=== PATIENT | male | born 1930 | race African-American/Black ===

== ENCOUNTER 2019-03-21 09:13 | Emergency (ER) | payer OTHER ==
[2019-03-21] MEDS ORDERED: HYDROCODONE/APAP 7.5/325 MG TAB ONE (10:35)
--- NOTE | 2019-03-21 10:45 | RAD REPORT ---
EXAM DESCRIPTION: RAD - Lumbar Spine 3 Views - 03/21/2019 10:35 am CLINICAL HISTORY: Back pain FINDINGS: Mild anterior subluxation L4 on L5. No acute fracture seen. Mild to moderate spondylosis Osteoporosis
--- NOTE | 2019-03-21 10:47 | RAD REPORT ---
EXAM DESCRIPTION: [place]03/21/2019 10:35 am CLINICAL HISTORY: Back pain status post fall FINDINGS: No fracture is seen Osteoporosis
--- NOTE | 2019-03-21 11:01 | ER ---
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 Transition of care: patient was not received from another setting of care. Onset of symptoms was March 20, 2019. Risk Assessment: Do you want to hurt yourself or someone else? Patient reports no desire to harm self or others. Initial Sepsis Screen: Does the patient meet any 2 criteria? No. Patient's initial sepsis screen is negative. Does the patient have a suspected source of infection? No. Patient's initial sepsis screen is negative. Care prior to arrival: None. 09:33 Method Of Arrival: Wheelchair iw 09:33 Acuity: ANGUS 4 iw Historical: - Allergies: 09:38 No Known Allergies; iw - Home Meds: 09:36 valsartan-hydrochlorothiazide 320-25 mg oral tab 1 tab once daily [Active]; metformin iw 500 mg Oral tr24 1 tab twice a day [Active]; amiloride 5 mg oral tab 1 tab once daily [Active]; bumetanide 2 mg Oral tab 1 tab 2 times per day [Active]; colchicine 0.6 mg Oral tab 1 tab once daily [Active]; - PMHx: 09:36 Diabetes - NIDDM; Glaucoma; Hypertension; irregular heartbeat; Kyphosis; prostate iw radiation; - PSHx: 09:36 cataracts; iw - Immunization history:: Adult Immunizations not up to date. - Social history:: Smoking status: Patient/guardian denies using tobacco. - Ebola Screening: : Patient negative for fever greater than or equal to 101.5 degrees Fahrenheit, and additional compatible Ebola Virus Disease symptoms Patient denies exposure to infectious person Patient denies travel to an Ebola-affected area in the 21 days before illness onset No symptoms or risks identified at this time. Screenin:00 Abuse screen: Denies threats or abuse. Denies injuries from another. Nutritional hb screening: No deficits noted. Tuberculosis screening: No symptoms or risk factors identified. Fall Risk Total [place] Fall Scale indicates Low Risk Score (25-44 pts). Fall prevention measures have been instituted. Side Rails Up X 2 Frequent Obs/Assesments occuring Family Present and informed to notify staff if they need to leave bedside As available Patient and Family Educated on Fall Prevention Program and strategies. Vital Signs: 09:36 BP 131 / 68; Pulse 50; Resp 16; Temp 98.2; Pulse Ox 97% on R/A; Weight 95.71 kg; Height iw 6 ft. 1 in. (185.42 cm); Pain 5/10; 09:36 Body Mass Index 27.84 (95.71 kg, 185.42 cm) iw ED Course: 09:14 Patient arrived in ED. as 09:14 Neeru Santos is Private Physician. as 09:35 Triage completed. iw 09:36 Arm band placed on. iw 09:51 Marvel Best PA is PHCP. jr8 09:52 Jose Maria Suarez MD is Attending Physician. jr8 10:00 Patient has correct armband on for positive identification. Bed in low position. Call hb light in reach. Side rails up X 1. 10:07 Vianney Garnett, RN is Primary Nurse. hb 10:33 XRAY Lumbar Spine (3 Views) In Process Unspecified. EDMS 10:33 XRAY Sacrum And Coccyx In Process Unspecified. EDMS 11:35 No provider procedures requiring assistance completed. Patient did not have IV access hb during this emergency room visit. Administered Medications: 10:49 Drug: [place] (7.5 mg-325 mg) 1 tabs Route: PO; hb 11:34 Follow up: Response: No adverse reaction; Pain is decreased hb Outcome: 11:00 Discharge ordered by . jr8 11:35 Patient left the ED. iw 11:35 Discharged to home ambulatory. hb 11:35 Condition: stable 11:35 Discharge instructions given to patient, Instructed on discharge instructions, follow up and referral plans. medication usage, Demonstrated understanding of instructions, follow-up care, medications, Prescriptions given X 2. Signatures: Dispatcher [employer] EDMS BoTaylor Irene, RN RN iw Marvel Best PA PA jr8 Vianney Garnett, RN RN hb
--- NOTE | 2019-03-21 11:01 | EDPHYS ---
Physician Documentation [facility] Name: Marin Bhardwaj Age: 89 yrs Sex: Male : 1930 Arrival Date: 03/21/2019 Time: 09:14 Bed 6 Private MD: Neeru Santos ED Physician Jose Maria Suarez HPI: 03/21 10:51 This 89 yrs old Black Male presents to ER via Wheelchair with complaints of Back Pain. jr8 10:51 The patient presents with pain that is acute. The symptoms are located in the low back, jr8 coccyx area. Onset: The symptoms/episode began/occurred acutely, 3 day(s) ago. The pain does not radiate. Associated signs and symptoms: The patient has no apparent associated signs or symptoms. The problem was sustained during a fall. Modifying factors: The patient symptoms are alleviated by nothing, the patient symptoms are aggravated by movement. Severity of symptoms: At their worst the symptoms were moderate, in the emergency department the symptoms are unchanged. The patient has not experienced similar symptoms in the past. The patient has not recently seen a physician. Stated that he fell off of his riding mower on . Landed on concrete hitting his low back and buttock region. Pain since then. Denies any other s/s . Historical: - Allergies: 09:38 No Known Allergies; iw - Home Meds: 09:36 valsartan-hydrochlorothiazide 320-25 mg oral tab 1 tab once daily [Active]; metformin iw 500 mg Oral tr24 1 tab twice a day [Active]; amiloride 5 mg oral tab 1 tab once daily [Active]; bumetanide 2 mg Oral tab 1 tab 2 times per day [Active]; colchicine 0.6 mg Oral tab 1 tab once daily [Active]; - PMHx: 09:36 Diabetes - NIDDM; Glaucoma; Hypertension; irregular heartbeat; Kyphosis; prostate iw radiation; - PSHx: 09:36 cataracts; iw - Immunization history:: Adult Immunizations not up to date. - Social history:: Smoking status: Patient/guardian denies using tobacco. - Ebola Screening: : Patient negative for fever greater than or equal to 101.5 degrees Fahrenheit, and additional compatible Ebola Virus Disease symptoms Patient denies exposure to infectious person Patient denies travel to an Ebola-affected area in the 21 days before illness onset No symptoms or risks identified at this time. ROS: 10:51 Eyes: Negative for injury, pain, redness, and discharge, ENT: Negative for injury, jr8 pain, and discharge, Neck: Negative for injury, pain, and swelling, Cardiovascular: Negative for chest pain, palpitations, and edema, Respiratory: Negative for shortness of breath, cough, wheezing, and pleuritic chest pain, Abdomen/GI: Negative for abdominal pain, nausea, vomiting, diarrhea, and constipation, MS/Extremity: Negative for injury and deformity, Skin: Negative for injury, rash, and discoloration, Neuro: Negative for headache, weakness, numbness, tingling, and seizure. 10:51 Back: Positive for pain at rest, pain with movement, of the low back area and sacrum. Exam: 10:51 Eyes: Pupils equal round and reactive to light, extra-ocular motions intact. Lids and jr8 lashes normal. Conjunctiva and sclera are non-icteric and not injected. Cornea within normal limits. Periorbital areas with no swelling, redness, or edema. ENT: Nares patent. No nasal discharge, no septal abnormalities noted. Tympanic membranes are normal and external auditory canals are clear. Oropharynx with no redness, swelling, or masses, exudates, or evidence of obstruction, uvula midline. Mucous membranes moist. Neck: Trachea midline, no thyromegaly or masses palpated, and no cervical lymphadenopathy. Supple, full range of motion without nuchal rigidity, or vertebral point tenderness. No Meningismus. Cardiovascular: Regular rate and rhythm with a normal S1 and S2. No gallops, murmurs, or rubs. Normal PMI, no JVD. No pulse deficits. Respiratory: Lungs have equal breath sounds bilaterally, clear to auscultation and percussion. No rales, rhonchi or wheezes noted. No increased work of breathing, no retractions or nasal flaring. Abdomen/GI: Soft, non-tender, with normal bowel sounds. No distension or tympany. No guarding or rebound. No evidence of tenderness throughout. Skin: Warm, dry with normal turgor. Normal color with no rashes, no lesions, and no evidence of cellulitis. MS/ Extremity: Pulses equal, no cyanosis. Neurovascular intact. Full, normal range of motion. Neuro: Awake and alert, GCS 15, oriented to person, place, time, and situation. Cranial nerves II-XII grossly intact. Motor strength 5/5 in all extremities. Sensory grossly intact. Cerebellar exam normal. Normal gait. 10:51 Back: pain, that is mild, of the lumbar area and sacrum, ROM is painful, normal spinal alignment noted, CVA tenderness, is absent, vertebral tenderness, is appreciated at L3, L4, L5 and sacrum. Vital Signs: 09:36 BP 131 / 68; Pulse 50; Resp 16; Temp 98.2; Pulse Ox 97% on R/A; Weight 95.71 kg; Height iw 6 ft. 1 in. (185.42 cm); Pain 510; 09:36 Body Mass Index 27.84 (95.71 kg, 185.42 cm) iw MDM: 09:52 Patient medically screened. jr8 11:00 Data reviewed: vital signs, nurses notes, radiologic studies, plain films. Data jr8 interpreted: Pulse oximetry: on room air is 97 %. Interpretation: normal. Counseling: I had a detailed discussion with the patient and/or guardian regarding: the historical points, exam findings, and any diagnostic results supporting the discharge/admit diagnosis, radiology results, the need for outpatient follow up, a family practitioner, to return to the emergency department if symptoms worsen or persist or if there are any questions or concerns that arise at home. 03/21 10:08 Order name: XRAY Lumbar Spine (3 Views); Complete Time: 10:50 jr8 03/21 10:08 Order name: XRAY Sacrum And Coccyx; Complete Time: 10:50 jr8 Administered Medications: 10:49 Drug: [place] (7.5 mg-325 mg) 1 tabs Route: PO; hb 11:34 Follow up: Response: No adverse reaction; Pain is decreased hb Disposition: 13:42 Co-signature as Attending Physician, Jose Maria Suarez MD. Disposition: 03/21/19 11:00 Discharged to Home. Impression: Low back pain. - Condition is Stable. - Discharge Instructions: Back Pain, Adult, Heat Therapy. - Prescriptions for Skelaxin 800 mg Oral Tablet - take 1 tablet by ORAL route every 8 hours As needed; 20 tablet. Tramadol 50 mg Oral Tablet - take 1 tablet by ORAL route every 8 hours as needed; 12 tablet. - Medication Reconciliation Form, Thank You Letter, Antibiotic Education, Prescription Opioid Use form. - Follow up: Private Physician; When: As needed; Reason: If symptoms return, Recheck today's complaints, Continuance of care, Re-evaluation by your physician. - Problem is new. - Symptoms have improved. Signatures: Dispatcher [employer] EDLeila Childs RN RN iw Marvel Best PA PA jr8 Vianney Garnett RN RN Jose Maria Suarez MD MD Corrections: (The following items were deleted from the chart) 11:35 11:00 03/21/2019 11:00 Discharged to Home. Impression: Low back pain. Condition is iw Stable. Forms are Medication Reconciliation Form, Thank You Letter, Antibiotic Education, Prescription Opioid Use. Follow up: Private Physician; When: As needed; Reason: If symptoms return, Recheck today's complaints, Continuance of care, Re-evaluation by your physician. Problem is new. Symptoms have improved. jr8
== END 2019-03-21 11:35 | disposition home or self-care (01) ==
LOC: ER 09:13
DX: M54.5 Low back pain (principal); I10 Essential (primary) hypertension; E11.9 Type 2 diabetes mellitus without complications
CPT/HCPCS: 72100; 72220; 99283

== ENCOUNTER 2020-04-01 15:15 | Observation (INO) | payer OTHER ==
[2020-04-01 16:13] LABS: Absolute Lymphocytes (CBC) 1.2 K/uL (0.7-4.9); Basophils % 0.3 % (0-1.3); Hematocrit 38.4 % (39.6-49.0); Lymphocytes % 12.4 % (15.3-44.8); MPV 7.2 fL (7.6-11.3); RBC Red Blood Cell Count 4.13 M/uL (4.33-5.43)
[2020-04-01 16:15] LABS: Protime INR 1.16
[2020-04-01 16:32] LABS: Albumin 2.4 g/dL (3.4-5.0); Bilirubin Direct 0.3 mg/dL (0-0.2); Bilirubin Total 0.6 mg/dL (0.2-1.0); Magnesium 2.7 mg/dL (1.8-2.4); Potassium 3.6 mmol/L (3.5-5.1); Protein, Total 7.9 g/dL (6.4-8.2); Troponin (Emerg Dept Use Only) 0.16 ng/mL (0.0-0.045)
--- NOTE | 2020-04-01 16:56 | RAD REPORT ---
EXAM DESCRIPTION: RAD - Chest Single View - 04/01/2020 4:05 pm CLINICAL HISTORY: bilateral leg swelling Chest pain. COMPARISON: Chest Single View dated 10/09/2017 FINDINGS: Portable technique limits examination quality. 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 Calcified areas of nodularity are seen in the left up per lobe laterally, likely benign. The heart is upper limit normal in size. No displaced fractures. IMPRESSION: No acute intrathoracic process suspected.
--- NOTE | 2020-04-01 16:57 | RAD REPORT ---
EXAM DESCRIPTION: US - Extrem Venous W Compress Kam - 04/01/2020 4:33 pm CLINICAL HISTORY: Swelling;Pain Bilateral leg edema and swelling. COMPARISON: EXT VENOUS UNI LTD dated 07/15/2014 TECHNIQUE: Real-time sonographic interrogation of the left and right lower extremity deep venous sys tems was performed. FINDINGS: Thrombus is present in the left common femoral vein compatible with acute DVT. That will r ight lower extremity DVT. 6 cm Valdivia's cyst left popliteal region. IMPRESSION: Positive for left common femoral vein DVT.
--- NOTE | 2020-04-01 17:06 | EDPHYS ---
Physician Documentation [facility] Name: Marin Bhardwaj Age: 89 yrs Sex: Male : 1930 Arrival Date: 04/01/2020 Time: 15:24 Bed 8 Private MD: ED Physician Kennedy Tan HPI: 04/01 15:35 This 89 yrs old Black Male presents to ER via EMS with complaints of Leg Swelling. cp 15:35 The patient presents with pain, swelling, tenderness. The complaints affect the right cp foot, left foot, right leg and left leg. 15:35 Onset: The symptoms/episode began/occurred gradually. cp 15:35 Associated signs and symptoms: Pertinent negatives fever, warmth, chest pain, abdominal cp pain, shortness of breath. Historical: - Allergies: 15:28 No Known Allergies; em - PMHx: 15:28 Diabetes - NIDDM; Glaucoma; irregular heartbeat; Kyphosis; prostate radiation; em Hypertension; Atrial Fib; - PSHx: 15:28 cataracts; em - Immunization history:: Adult Immunizations up to date. - Social history:: Smoking status: Patient denies any tobacco usage or history of. ROS: 15:39 Eyes: Negative for injury, pain, redness, and discharge. cp 15:39 Constitutional: Negative for body aches, chills, fever, poor PO intake. 15:39 ENT: Negative for ear pain, sore throat, difficulty swallowing, difficulty handling cp secretions. 15:39 Cardiovascular: Positive for edema, Negative for chest pain, palpitations. 15:39 Respiratory: Negative for cough, shortness of breath, wheezing. 15:39 Abdomen/GI: Negative for abdominal pain, nausea, vomiting, and diarrhea. 15:39 Back: Negative for pain at rest, pain with movement. 15:39 Skin: Negative for rash. 15:39 Neuro: Negative for altered mental status, dizziness, headache, syncope, weakness. 15:39 All other systems are negative. Exam: 15:45 Constitutional: The patient appears in no acute distress, alert, awake, cp non-diaphoretic, non-toxic, well developed, well nourished. 15:45 Head/Face: Normocephalic, atraumatic. cp 15:45 Eyes: Periorbital structures: appear normal, Conjunctiva: normal, no exudate, no injection, Sclera: no appreciated abnormality, Lids and lashes: appear normal, bilaterally. 15:45 ENT: External ear(s): are unremarkable, Nose: is normal, Mouth: Lips: moist, Oral mucosa: moist, Posterior pharynx: is normal, airway is patent. 15:45 Chest/axilla: Inspection: normal, Palpation: is normal, no crepitus, no tenderness. 15:45 Cardiovascular: Rate: normal, Rhythm: regular, Edema: pedal edema, that is moderate, ankle edema, that is moderate, JVD: is not appreciated. 15:45 Respiratory: the patient does not display signs of respiratory distress, Respirations: normal, no use of accessory muscles, no retractions, labored breathing, is not present, Breath sounds: decreased breath sounds, that are mild, throughout. 15:45 Abdomen/GI: Inspection: abdomen appears normal, Palpation: abdomen is soft and non-tender, in all quadrants. 15:45 Musculoskeletal/extremity: Pulses: noted to be 2+ in the right dorsalis pedis artery and left dorsalis pedis artery, DVT Exam: no erythema, no increased warmth, pain, that is mild, of the right leg, of the left leg, swelling, of the right leg, of the left leg, worse left leg, tenderness, that is mild, of the right leg, of the left leg. 15:45 Skin: cellulitis, is not appreciated, no rash present. 15:45 Neuro: Orientation: to person, place \T\ time. Mentation: is normal. 16:15 ECG was reviewed by the Attending Physician. cp Vital Signs: 15:24 BP 96 / 80; Pulse 81; Resp 18; Temp 98.1(O); Pulse Ox 100% on R/A; Weight 109.77 kg; em Height 6 ft. 2 in. (187.96 cm); Pain 0/10; 16:33 BP 105 / 65; Pulse 81; Resp 16; Pulse Ox 99% on R/A; em 17:38 BP 110 / 61; Pulse 62; Resp 21; Pulse Ox 100% ; jl7 19:21 BP 109 / 65; Pulse 66; Resp 18; Temp 98; Pulse Ox 98% ; ea 15:24 Body Mass Index 31.07 (109.77 kg, 187.96 cm) em MDM: 15:33 Patient medically screened. cp 16:00 Differential diagnosis: cellulitis, CHF exacerbation, DVT. cp 17:01 Data reviewed: vital signs, nurses notes, lab test result(s), EKG, radiologic studies, cp plain films, I have discussed the patient's presentation/case with the attending Emergency Department Physician;. Test interpretation: by ED physician or midlevel provider: ECG. Physician consultation: Prince Anushka PETE was called at 17:00, was contacted at 17:00, regarding admission, to the telemetry unit. patient's condition. 04/01 15:36 Order name: Basic Metabolic Panel; Complete Time: 16:33 04/01 16:33 Interpretation: Normal except: NA 132; CL 96; GLUC 155; BUN 99; CRE 2.30; GFR 33. 04/01 15:36 Order name: CBC with Diff; Complete Time: 16:28 04/01 16:29 Interpretation: Normal except: RBC 4.13; HGB 12.9; HCT 38.4; MPV 7.2; EVELIA% 77.2; LYM% cp 12.4. 04/01 15:36 Order name: LFT's; Complete Time: 16:33 04/01 16:35 Interpretation: Normal except: AST 60; ALT 81; BILID 0.3; ALB 2.4; GLOB 5.5; A/G 0.4. 04/01 15:36 Order name: Magnesium; Complete Time: 16:33 04/01 15:36 Order name: NT PRO-BNP; Complete Time: 16:33 04/01 17:01 Interpretation: Abnormal: NT PRO-BNP 4403. 04/01 15:36 Order name: PT-INR; Complete Time: 16:28 04/01 15:36 Order name: Troponin (emerg Dept Use Only); Complete Time: 16:33 04/01 16:35 Interpretation: Reviewed. 04/01 17:47 Order name: CBC with Automated Diff EDIN 04/01 17:47 Order name: CBC with Automated Diff EDIN 04/01 17:47 Order name: Comprehensive Metabolic Panel EDIN 04/01 17:47 Order name: Comprehensive Metabolic Panel EDIN 04/01 17:47 Order name: Troponin I EDIN 04/01 17:47 Order name: Troponin I EDIN 04/01 17:47 Order name: Troponin I EDIN 04/01 15:36 Order name: US Extremity Venous W Compression Kam; Complete Time: 16:58 cp 04/01 15:36 Order name: XRAY Chest (1 view); Complete Time: 16:58 cp 04/01 15:36 Order name: EKG; Complete Time: 15:37 04/01 15:36 Order name: Cardiac monitoring; Complete Time: 16:15 04/01 15:36 Order name: EKG - Nurse/Tech; Complete Time: 16:15 cp 04/01 15:36 Order name: IV Saline Lock; Complete Time: 15:53 cp 04/01 15:36 Order name: Labs collected and sent; Complete Time: 15:53 04/01 15:36 Order name: O2 Per Protocol; Complete Time: 15:56 04/01 15:36 Order name: O2 Sat Monitoring; Complete Time: 15:56 cp 04/01 17:47 Order name: CONS Pharmacy Consult EDIN 04/01 17:47 Order name: CONS Physician Consult EDIN 04/01 17:47 Order name: CONS Physician Consult EDIN 04/01 17:47 Order name: Consistent Carb (ADA) 1800 Raul EDMS EC:15 Rate is 65 beats/min. QRS interval is prolonged at 102 msec. QT interval is normal. T cp waves are Inverted in lead aVR. Interpreted by me. Reviewed by me. Administered Medications: 17:38 Drug: Lovenox 1 mg/kg {Note: was given 110 mg.} Route: Sub-Q; Site: left lower abdomen; em 18:30 Follow up: Response: No adverse reaction em 17:40 Drug: Bumex 1 mg Route: IVP; Site: left hand; em 18:30 Follow up: Response: No adverse reaction em 19:17 Drug: fentaNYL (PF) 25 mcg Route: IVP; Site: left forearm; ea 19:40 Follow up: Response: No adverse reaction; Pain is decreased; RASS: Alert and Calm (0) ea Disposition: 04/02 07:04 Co-signature as Attending Physician, Kennedy Tan MD. rn Disposition: 04/01/20 17:05 Hospitalization ordered by Prince Anushka for Inpatient Admission. Preliminary diagnosis are Acute embolism and thrombosis of deep veins of lower extremity - left, Unspecified combined systolic (congestive) and diastolic (congestive) heart failure, Acute kidney failure, unspecified. - Bed requested for Telemetry/MedSurg (Inpatient). - Status is Inpatient Admission. ea - Condition is Stable. - Problem is new. - Symptoms have improved. Signatures: Dispatcher [employer] Mike Villarreal RN RN Kennedy Fournier MD MD rn Page, Corey, PA PA Tami Strickland RN RN ea Botello, Elizabeth Corrections: (The following items were deleted from the chart) 04/01 17:59 17:05 Hospitalization Ordered by Prince Anushka PETE for Inpatient Admission. Preliminary eb diagnosis is Acute embolism and thrombosis of deep veins of lower extremity - left; Unspecified combined systolic (congestive) and diastolic (congestive) heart failure; Acute kidney failure, unspecified. Bed requested for Telemetry/MedSurg (Inpatient). Status is Inpatient Admission. Condition is Stable. Problem is new. Symptoms have improved. cp 20:16 17:59 04/01/2020 17:05 Hospitalization Ordered by Prince Anushka PETE for Inpatient ea Admission. Preliminary diagnosis is Acute embolism and thrombosis of deep veins of lower extremity - left; Unspecified combined systolic (congestive) and diastolic (congestive) heart failure; Acute kidney failure, unspecified. Bed requested for Telemetry/MedSurg (Inpatient). Status is Inpatient Admission. Condition is Stable. Problem is new. Symptoms have improved. eb 04/02 19:41 15:39 Cardiovascular: Positive for edema, Negative for chest pain, palpitations, cp cp 19:41 15:39 Respiratory: Negative for cough, shortness of breath, wheezing, cp cp 19:41 15:39 Abdomen/GI: Negative for abdominal pain, nausea, vomiting, and diarrhea, cp cp 19:41 15:39 ENT: Negative for ear pain, sore throat, difficulty swallowing, difficulty cp handling secretions, cp 19:41 15:39 Back: Negative for pain at rest, pain with movement, cp cp 19:41 15:39 Neuro: Negative for altered mental status, dizziness, headache, syncope, cp weakness, cp 19:41 15:39 Skin: Negative for rash, cp cp 19:41 15:39 All other systems are negative, cp cp
--- NOTE | 2020-04-01 17:06 | ER ---
Nurse's Notes [facility] Name: Marin Bhardwaj Age: 89 yrs Sex: Male : 1930 Arrival Date: 04/01/2020 Time: 15:24 Bed 8 Private MD: Diagnosis: Acute embolism and thrombosis of deep veins of lower extremity-left;Unspecified combined systolic (congestive) and diastolic (congestive) heart failure;Acute kidney failure, unspecified Presentation: 04/01 15:24 Chief complaint: EMS states: family called EMS for chai. leg swelling, right hand em swelling and right knee pain, no fever, cough or shortness of breath. Coronavirus screen: Proceed with normal triage. Patient denies a cough. Patient denies shortness of breath or difficulty breathing. Patient denies measured and/or subjective temperature greater than 100.4F prior to today's visit. Patient denies travel on a cruise ship or to a country the [facility] currently lists as an affected area. Patient denies contact with known and/or suspected case of COVID-19. Ebola Screen: Patient negative for fever greater than or equal to 101.5 degrees Fahrenheit, and additional compatible Ebola Virus Disease symptoms Patient denies exposure to infectious person. Patient denies travel to an Ebola-affected area in the 21 days before illness onset. No symptoms or risks identified at this time. Initial Sepsis Screen: Does the patient meet any 2 criteria? No. Patient's initial sepsis screen is negative. Does the patient have a suspected source of infection? No. Patient's initial sepsis screen is negative. Risk Assessment: Do you want to hurt yourself or someone else? Patient reports no desire to harm self or others. Onset of symptoms was April 01, 2020. 15:24 Method Of Arrival: EMS: [facility] em 15:24 Acuity: ANGUS 3 em Historical: - Allergies: 15:28 No Known Allergies; em - PMHx: 15:28 Diabetes - NIDDM; Glaucoma; irregular heartbeat; Kyphosis; prostate radiation; em Hypertension; Atrial Fib; - PSHx: 15:28 cataracts; em - Immunization history:: Adult Immunizations up to date. - Social history:: Smoking status: Patient denies any tobacco usage or history of. Screenin:28 Abuse screen: Denies threats or abuse. Nutritional screening: No deficits noted. em Tuberculosis screening: No symptoms or risk factors identified. Fall Risk Gait- Weak (10 pts.). Mental Status- Oriented to own ability (0 pts). Total [place] Fall Scale indicates No Risk (0-24 pts). Assessment: 15:24 General: Appears in no apparent distress. comfortable, Behavior is calm, cooperative, em Denies fever. Pain: Pain currently is 0 out of 10 on a pain scale. Aggravated by increased activity, repositioning. Neuro: Level of Consciousness is awake, alert, obeys commands, Oriented to person, place, time, situation, Appropriate for age. Cardiovascular: Capillary refill < 3 seconds Patient's skin is warm and dry. Respiratory: Airway is patent Respiratory effort is even, unlabored, Respiratory pattern is regular, symmetrical. GI: Abdomen is flat, Patient currently denies nausea, vomiting. Derm: Skin is intact, is healthy with good turgor, Skin is pink, warm \T\ dry. Musculoskeletal: Range of motion: intact in all extremities, Swelling present in left hand and left leg and right leg and left foot and right foot. 16:33 Reassessment: Patient appears in no apparent distress at this time. Patient and/or em family updated on plan of care and expected duration. Pain level reassessed. Patient is alert, oriented x 3, equal unlabored respirations, skin warm/dry/pink. 17:38 Reassessment: Patient appears in no apparent distress at this time. Patient and/or em family updated on plan of care and expected duration. Pain level reassessed. Patient is alert, oriented x 3, equal unlabored respirations, skin warm/dry/pink. 18:30 Reassessment: Patient appears in no apparent distress at this time. Patient and/or em family updated on plan of care and expected duration. Pain level reassessed. Patient is alert, oriented x 3, equal unlabored respirations, skin warm/dry/pink. reports back pain. 19:20 General: Appears uncomfortable, Behavior is calm, cooperative. Pain: Complains of pain ea in back. Neuro: Level of Consciousness is awake, alert, obeys commands, Oriented to person, place, time, situation. Cardiovascular: Patient's skin is warm and dry. Respiratory: Airway is patent Respiratory effort is even, unlabored, Respiratory pattern is regular, symmetrical. Derm: chai extremity pitting edema. 20:14 Reassessment: Patient and/or family updated on plan of care and expected duration. Pain ea level reassessed. Patient is alert, oriented x 3, equal unlabored respirations, skin warm/dry/pink. Pt admitted to second floor. Pt left ED via stretcher per technical education teacher. Pt tolerating well. Vital Signs: 15:24 BP 96 / 80; Pulse 81; Resp 18; Temp 98.1(O); Pulse Ox 100% on R/A; Weight 109.77 kg; em Height 6 ft. 2 in. (187.96 cm); Pain 0/10; 16:33 BP 105 / 65; Pulse 81; Resp 16; Pulse Ox 99% on R/A; em 17:38 BP 110 / 61; Pulse 62; Resp 21; Pulse Ox 100% ; jl7 19:21 BP 109 / 65; Pulse 66; Resp 18; Temp 98; Pulse Ox 98% ; ea 15:24 Body Mass Index 31.07 (109.77 kg, 187.96 cm) em ED Course: 15:24 Patient arrived in ED. em 15:24 Momo Hernandez PA is PHCP. cp 15:24 Kennedy Tan MD is Attending Physician. cp 15:26 Triage completed. em 15:28 Arm band placed on. em 15:28 Patient has correct armband on for positive identification. Bed in low position. Call em light in reach. Side rails up X2. Adult w/ patient. security monitor on. Pulse ox on. NIBP on. 15:28 Maintain EMS IV. Dressing intact. Good blood return noted. Site clean \T\ dry. Gauge \T\ em site: 20 R FA. 15:46 Initial lab(s) drawn, by mi, sent to lab. dh3 15:55 Mike Brooks, RN is Primary Nurse. em 16:06 XRAY Chest (1 view) In Process Unspecified. EDMS 16:14 EKG done, by ED staff, reviewed by Momo RODRIGUEZ. dh3 16:29 Ultrasound completed. Patient tolerated well. Notified DIPLOMA DENTAL ASSISTANT/PA momo hernandez. sg3 16:33 US Extremity Venous W Compression Chai In Process Unspecified. EDMS 17:04 Prince Reveles MD is Hospitalizing Provider. cp 19:21 No provider procedures requiring assistance completed. Patient admitted, IV remains in ea place. Administered Medications: 17:38 Drug: Lovenox 1 mg/kg {Note: was given 110 mg.} Route: Sub-Q; Site: left lower abdomen; em 18:30 Follow up: Response: No adverse reaction em 17:40 Drug: Bumex 1 mg Route: IVP; Site: left hand; em 18:30 Follow up: Response: No adverse reaction em 19:17 Drug: fentaNYL (PF) 25 mcg Route: IVP; Site: left forearm; ea 19:40 Follow up: Response: No adverse reaction; Pain is decreased; RASS: Alert and Calm (0) ea Outcome: 17:05 Decision to Hospitalize by Provider. cp 19:21 Instructed on the need for admit, Demonstrated understanding of instructions. ea 20:13 Admitted to Med/surg accompanied by tech, room 201, with chart, Report called to ea Receiving nurse on second floor 20:13 Condition: stable 20:16 Patient left the ED. ea Signatures: Dispatcher [employer] EDMike Cabral RN RN Momo Ramos, PA PA Felipe Landis, RN RN 7 Rosalee Velasco 3 Tami Chavez, RN RN Magali Ang sg3 Corrections: (The following items were deleted from the chart) 17:43 17:38 Lovenox 1 mg/kg Sub-Q in left lower abdomen em em
[2020-04-01] MEDS ORDERED: ENOXAPARIN 30 MG/0.3 ML SQ ONE (17:10)
[2020-04-01] MEDS ORDERED: ENOXAPARIN 100 MG/ML SYR SQ ONE (17:10)
--- NOTE | 2020-04-01 17:15 | P.HP ---
Certification for Inpatient With expected LOS: >2 Midnights Patient will require the following post-hospital care: Home Health Services Practitioner: I am a practitioner with admitting privileges, knowledge of patient current condition, hospital course, and medical plan of care. Services: Services provided to patient in accordance with Admission requirements found in Title 42 Section 412.3 of the Code of Federal Regulations Patient History Date of Service: 04/01/20 Reason for admission: Lower extremity swelling History of Present Illness: The CTU male with past medical history of HTN, he he notes and chronic anticoagulation, prostate disease, CHF and diastolic dysfunction, echo from 2018 showing EF of 60%, chronic mild Lower extremity edema admitted for worsening bilateral lower extremity swelling. Work up in the emergency room included ultrasound of the lower extremity shows new left common popliteal DVT. He was noted with mild shortness of breath. Chest x-ray shows mild pulmonary congestive changes. He was also noted to have elevated troponin of 0.16. He denies any chest pain. He denies any dizziness. This CT was unremarkable. His previous creatinine was 1.4 2 years ago that worsened to 2.3 . He is being admitted for elevated troponin and acute kidney injury Allergies No Known Allergies Allergy (Verified 10/10/17 04:52) Home Medications: Amlodipine [Norvasc*] 10 mg PO DAILY 10/09/17 Aspirin [Low Dose Aspirin EC] 81 mg PO DAILY 10/09/17 Bumetanide 1 mg PO BID 10/09/17 Metformin HCl [Glucophage*] 500 mg PO BIDWM 10/09/17 Valsartan/Hydrochlorothiazide [Valsartan-Hctz 320-25 mg Tab] 1 each PO DAILY 10/09/17 - Past Medical/Surgical History Diabetic: Yes -: Prostate CA -: Afib -: HTN -: DM -: glaucoma -: kyphosis -: L. elbow sx - Social History Smoking Status: Never smoker Counseled patient to stop smoking for: less than 10 minutes Smoking therapy provided: No Patient receptive to therapy: No Alcohol use: No CD- Drugs: No Caffeine use: No Place of Residence: Home Review of Systems 10-point ROS is otherwise unremarkable Physical Examination - Physical Exam General: Alert, In no apparent distress, Cooperative, Other (elderly male , ) HEENT: Atraumatic, Normocephalic, PERRLA Neck: Supple, 2+ carotid pulse no bruit, JVD not distended Respiratory: Normal air movement, Crackles/rales Cardiovascular: Normal pulses, Regular rate/rhythm, Irregular heart rate/rhythm Gastrointestinal: Normal bowel sounds, Soft and benign, Non-distended, No masses, No rebound Musculoskeletal: No clubbing, Swelling Integumentary: No rashes, No breakdown Neurological: Normal speech, Abnormal gait External genitalia: No edema, No lesions, Edema - Studies Laboratory Data (last 24 hrs) 04/01/20 15:46: PT 13.7 H, INR 1.16 04/01/20 15:46: WBC 9.3, Hgb 12.9 L, Hct 38.4 L, Plt Count 352 04/01/20 15:46: Sodium 132 L, Potassium 3.6, BUN 99 H, Creatinine 2.30 H, G lucose 155 H, Magnesium 2.7 H, Total Bilirubin 0.6, AST 60 H, ALT 81 H, Alkaline Phosphatase 77 Assessment and Plan - Problems (Diagnosis) (1) ARF (acute renal failure) Current Visit: Yes Status: Acute (2) CKD (chronic kidney disease) stage 4, GFR 15-29 ml/min Current Visit: Yes Status: Acute (3) Dvt femoral (deep venous thrombosis) Current Visit: Yes Status: Acute (4) Elevated troponin Current Visit: Yes Status: Acute (5) Atrial fibrillation Onset Date: 10/10/17 Current Visit: No Status: Acute (6) DM2 (diabetes mellitus, type 2) Onset Date: 10/10/17 Current Visit: No Status: Acute (7) 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 meds Will hold valsartan and hold metformin still taking Will consult Nephrology l # DM -do insulin with sliding scale. Hold metformin for now -obtain correct home medication # left extremity DVT-continue Lovenox for now -will plan for Eliquis in a.m. if no plan for cardiac intervention DVT prophylaxis -follow plan for Eliquis Advanced directive - will discuss with family HTN - controlled , continue home regimen. Avoid ACEI or ARB now
[2020-04-01] MEDS ORDERED: MORPHINE 2 MG/ML SYR IV PRN (17:37)
[2020-04-01] MEDS ORDERED: ACETAMINOPHEN 500 MG TAB PO PRN (17:37)
[2020-04-01] MEDS ORDERED: ONDANSETRON 4 MG/2 ML VIAL IV PRN (17:37)
[2020-04-01] MEDS ORDERED: ALBUTEROL 2.5 MG/3 ML NEB SOL NEB PRN (17:37)
[2020-04-01] MEDS ORDERED: guaiFENesin 100 MG/5 ML UCUP PO PRN (17:43)
[2020-04-01] MEDS ORDERED: POTASSIUM 25 MEQ EFFERV TAB PO ONE (17:43)
[2020-04-01] MEDS ORDERED: HYDRALAZINE HCL 20 MG/ML VIAL IV PRN (17:43)
[2020-04-01] MEDS ORDERED: BUMETANIDE 1 MG/4 ML VIAL IV ONE (18:00)
[2020-04-01] MEDS ORDERED: FENTANYL CITR 100 MCG/2 ML ONE (19:21)
[2020-04-01 20:54] VITALS: O2SAT 98
[2020-04-01 20:57] VITALS: BMI 25.8
[2020-04-01] MEDS: BUMETANIDE 1 MG/4 ML VIAL IV SCH (20:58)
[2020-04-01] MEDS: INSULIN -REGULAR HUMAN 50 UNIT/0.5 ML ML SQ SCH (20:59)
[2020-04-01] MEDS: APIXABAN 5 MG TABLET PO SCH (21:00)
[2020-04-01] MEDS ORDERED: FAMOTIDINE 20 MG TAB PO SCH ×2 (21:00→23:00)
[2020-04-02 03:49] LABS: Absolute Lymphocytes (CBC) 1.9 K/uL (0.7-4.9); Basophils % 0.4 % (0-1.3); Hematocrit 37.2 % (39.6-49.0); Lymphocytes % 18.2 % (15.3-44.8); MPV 7.7 fL (7.6-11.3); RBC Red Blood Cell Count 4.04 M/uL (4.33-5.43)
[2020-04-02 04:05] LABS: Albumin 2.2 g/dL (3.4-5.0); Bilirubin Total 0.7 mg/dL (0.2-1.0); Protein, Total 7.3 g/dL (6.4-8.2)
[2020-04-02] MEDS: INSULIN -REGULAR HUMAN 50 UNIT/0.5 ML ML SQ SCH ×2 (07:30→11:30)
[2020-04-02] MEDS: APIXABAN 5 MG TABLET PO SCH (08:36)
[2020-04-02] MEDS ORDERED: ASPIRIN EC 81 MG TAB PO SCH (09:00)
--- NOTE | 2020-04-02 10:19 | EKG ---
Test Date: 2020-04-01 Test Time: 16:08:33 Ward Assistant: CHETAN MEASUREMENT RESULTS: Intervals: Rate: 65 DE: QRSD: 102 QT: 444 QTc: 461 [place]: P: DE: QRS: -32 T: 86 INTERPRETIVE STATEMENTS: sr Left axis deviation Septal infarct, age undetermined Abnormal ECG Compared to ECG 10/10/2017 01:34:20 Ventricular premature complex(es) now present Left-axis deviation now present Myocardial infarct finding still present Electronically Signed On 04-02-20 10:18:52 CDT by Sergo Ronquillo
[2020-04-02] MEDS: BUMETANIDE 1 MG/4 ML VIAL IV SCH (10:26)
--- NOTE | 2020-04-02 12:19 | P.DS ---
Admission Date: 04/01/20 Discharge Date: 04/02/20 Disposition: DC HOME/HOME HEALTH CARE Discharge Condition: FAIR Reason for Admission: Lower extremity swelling - Problems (1) ARF (acute renal failure) Current Visit: Yes Status: Acute (2) CKD (chronic kidney disease) stage 4, GFR 15-29 ml/min Current Visit: Yes Status: Acute (3) Dvt femoral (deep venous thrombosis) Current Visit: Yes Status: Acute (4) Elevated troponin Current Visit: Yes Status: Acute (5) Atrial fibrillation Onset Date: 10/10/17 Current Visit: No Status: Acute (6) DM2 (diabetes mellitus, type 2) Onset Date: 10/10/17 Current Visit: No Status: Acute (7) 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 Work up in the emergency room included ultrasound of the lower extremity shows new left common popliteal DVT. He was noted with mild shortness of breath. Chest x-ray shows mild pulmonary congestive changes. He was also noted to have elevated troponin of 0.16. He denies any chest pain. He denies any dizziness. This CT was unremarkable. His previous creatinine was 1.4 2 years ago that worsened to 2.3 . He is being admitted for elevated troponin and acute kidney injury Hospital Course: Patient on admission was noted to be in fluid overload status with proBNP of greater than 4000. He was started on IV Bumex with improving diuresis and decrease in lower extremity edema. He is more awake now. He has been started on Eliquis for his DVT. His creatinine improved from 2.3-2.1. His valsartan/HCTZ was held given mild hyponatremia of 132 which improved to 130 for now. Patient's blood pressure medication was changed given is azotemia. He has been started on amlodipine. He had metolazone added to his Bumex for increased diuresis. He is more awake today and converse and. He is requesting he can be discharged home today. He will be discharged home today. Home PT will be arr anged. Vital Signs/Physical Exam: Temp Pulse Resp BP Pulse Ox 97.9 F 49 L 18 115/61 95 04/02/20 08:00 04/02/20 10:26 04/02/20 10:37 04/02/20 10:26 04/02/20 10:37 General: Alert, In no apparent distress, Oriented x3 HEENT: Atraumatic, Normocephalic Neck: Supple, 2+ carotid pulse no bruit, JVD not distended Respiratory: Normal air movement, Diminished Cardiovascular: Regular rate/rhythm, Edema (decreasing to 2+) Gastrointestinal: Normal bowel sounds, Soft and benign, Non-distended Musculoskeletal: No clubbing, Swelling Integumentary: No rashes, No breakdown Neurological: Normal speech, Normal tone Laboratory Data at Discharge: WBC 10.3 K/uL (4.3-10.9) 04/02/20 03:17 Hgb 12.5 g/dL (13.6-17.9) L 04/02/20 03:17 Hct 37.2 % (39.6-49.0) L 04/02/20 03:17 Plt Count 353 K/uL (152-406) 04/02/20 03:17 PT 13.7 SECONDS (9.5-12.5) H 04/01/20 15:46 INR 1.16 04/01/20 15:46 Sodium 133 mmol/L (136-145) L 04/02/20 03:17 Potassium 4.0 mmol/L (3.5-5.1) 04/02/20 03:17 BUN 98 mg/dL (7-18) H 04/02/20 03:17 Creatinine 2.19 mg/dL (0.55-1.3) H 04/02/20 03:17 Glucose 138 mg/dL (74-106) H 04/02/20 03:17 Magnesium 2.7 mg/dL (1.8-2.4) H 04/01/20 15:46 Total Bilirubin 0.7 mg/dL (0.2-1.0) 04/02/20 03:17 AST 68 U/L (15-37) H 04/02/20 03:17 ALT 75 U/L (12-78) 04/02/20 03:17 Alkaline Phosphatase 75 U/L (45-117) 04/02/20 03:17 Troponin I 0.22 ng/mL (0.0-0.045) H 04/02/20 03:17 Home Medications: Bumetanide 2 mg PO BID 10/09/17 Amlodipine Besylate [Norvasc] 5 mg PO DAILY #30 tablet 04/02/20 Apixaban [Eliquis] 5 mg PO BID #60 tablet 04/02/20 Metolazone [Zaroxolyn] 5 mg PO DAILY #30 tablet 04/02/20 New Medications: Apixaban [Eliquis] 5 mg PO BID #60 tablet Amlodipine Besylate [Norvasc] 5 mg PO DAILY #30 tablet Metolazone [Zaroxolyn] 5 mg PO DAILY #30 tablet Patient Discharge Instructions: PCP in 1 week. - avoid falls as much as possible Activity: Fall precautions Followup: Sergo Ronquillo MD [ACTIVE - CAN ADMIT] - (Call to make an appointment. ) Time spent managing pt's care (in minutes): 35
[2020-04-02 12:53] VITALS: BP 109/61; TEMP 97.7
--- NOTE | 2020-04-02 13:22 | CON ---
Date of Consultation: 04/01/2020 The patient admitted on 04/01/2020. I saw the patient on 04/01/2020. Reason For Consultation: Elevated troponin, DVT, and edema. History Of Present Illness: Mr. Bhardwaj is an 89-year-old who was admitted with edema, was found to mercedes ve a DVT in the left common femoral vein. He is already on Eliquis. He had no chest pain but was fo und to have elevated troponin. His creatinine also was 2.30 and his valsartan with hydrochlorothiazi de was held. He is on Bumex at home in addition to that. His liver function enzymes were abnormal w ith an AST of 60, ALT of 81. His BNP was 4403. Troponin was 0.16. He denied PND. He denied palpit ation or syncope. Denied any fever or chills. Past Medical History: Includes diabetes, hypertension, prostate cancer, and atrial fibrillation. Allergies: NONE. Review of Systems: Negative. Social History: Negative. Family History: Noncontributory. Physical Examination: Vital Signs: Stable, afebrile. HEENT: Negative. Neck: Supple with no bruit. Chest: Clear. Cardiac: Revealed a regular rhythm and rate. No murmurs, gallops, or rubs. Abdomen: Benign. Extremities: Revealed no clubbing, cyanosis. He had 2+ edema, more on the left than the right. Diagnostic Data: As stated earlier. EKG was nonspecific. Impression And Plan: 1.Edema secondary to common femoral vein deep vein thrombosis. He is on Eliquis. 2.Hypertension. He is on hydralazine and Bumex. 3.Chronic obstructive pulmonary disease, on inhalers. 4.Elevated liver enzymes. 5.Elevated troponin. No clinical significance at this point, probably secondary to renal insufficie ncy. His BNP's elevation is also secondary to renal insufficiency. He has acute kidney injury and I agree with holding the valsartan and hydrochlorothiazide. Nephrology had been consulted. I jillian long have no plan for coronary intervention on Mr. Bhardwaj based on his presentation at this point. I w ill continue to follow him. Echocardiogram is pending. NB/MODL Voice ID: [id number] Report ID: [id number]
--- NOTE | 2020-04-02 14:25 | PN ---
Date of Progress Note: 04/02/2020 Mr. Bhardwaj was admitted with a DVT, elevated troponin, edema, sepsis. He had elevated creatinine of 2 .0. Overnight, his creatinine has improved to 2.1. His troponin is higher at 0.22. Again, no chest pain reported. Mr. Bhardwaj is not a candidate for coronary intervention or catheterization with his k idney failure. He has absolutely no cardiac symptoms. We will continue hydralazine, aspirin, inhale rs, and Eliquis. Has an echocardiogram pending next week on Friday. Nephrology is following him. I agree with his present regimen. ANUSHKA/MODL Voice ID: [id number] Report ID: [id number]
== END 2020-04-02 14:51 | disposition home or self-care (01) ==
LOC: ER 15:15 → ERHOLD 17:39 → INTOOBSV 17:39 → 2ND 19:42
PROVIDERS: ADMIT Internal Medicine; ATTEND Internal Medicine
DX: I82.412 Acute embolism and thrombosis of left femoral vein (principal); N17.9 Acute kidney failure, unspecified; N18.4 Chronic kidney disease, stage 4 (severe); E11.22 Type 2 diabetes mellitus with diabetic chronic kidney disease; I13.0 Hypertensive heart and chronic kidney disease with heart failure and stage 1 through stage 4 chronic kidney disease, or unspecified chronic kidney disease; I50.30 Unspecified diastolic (congestive) heart failure; J44.9 Chronic obstructive pulmonary disease, unspecified; R79.89 Other specified abnormal findings of blood chemistry; R74.8 Abnormal levels of other serum enzymes; R60.0 Localized edema; E87.1 Hypo-osmolality and hyponatremia; I48.91 Unspecified atrial fibrillation; Z11.59 Encounter for screening for other viral diseases; Z79.01 Long term (current) use of anticoagulants; Z79.84 Long term (current) use of oral hypoglycemic drugs; Z79.899 Other long term (current) drug therapy; Z85.46 Personal history of malignant neoplasm of prostate; Z92.3 Personal history of irradiation
CPT/HCPCS: 93005; 85025 ×2; 80048; 36415; 83735; 85610; 82947 ×3; 80076; 84484 ×3; 80053; 83880; 71045; 93970; 96375; 96372; 96374; 99285; U0002; J1650 ×2; J3010; J2270; G0378 ×3

== ENCOUNTER 2020-04-18 13:33 | Emergency (ER) | payer OTHER ==
[2020-04-18 15:16] LABS: Absolute Lymphocytes (CBC) 1.4 K/uL (0.7-4.9); Basophils % 0.4 % (0-1.3); Hematocrit 41.4 % (39.6-49.0); Lymphocytes % 30.7 % (15.3-44.8); MPV 7.2 fL (7.6-11.3); Protime INR 1.63; RBC Red Blood Cell Count 4.55 M/uL (4.33-5.43)
[2020-04-18 15:35] LABS: Bilirubin Direct 0.1 mg/dL (0-0.2); Bilirubin Total 0.4 mg/dL (0.2-1.0); Protein, Total 6.8 g/dL (6.4-8.2); Troponin (Emerg Dept Use Only) 0.15 ng/mL (0.0-0.045)
[2020-04-18 15:39] LABS: Magnesium 2.6 mg/dL (1.8-2.4); Potassium 3.7 mmol/L (3.5-5.1)
--- NOTE | 2020-04-18 16:03 | ER ---
Nurse's Notes [facility] Name: Marin Bhardwaj Age: 89 yrs Sex: Male : 1930 Arrival Date: 04/18/2020 Time: 14:18 Bed 17 Private MD: Diagnosis: Weakness;Abdominal tenderness;Type 2 diabetes mellitus;Gastrointestinal hemorrhage, unspecified-upper;Unspecified kidney failure-acute on chronic;Hypo-osmolality and hyponatremia;Constipation-rectal impaction Presentation: 04/18 14:42 Chief complaint: EMS states: black tarry stools per caregiver today was bright red. On iw eliquis. Coronavirus screen: Proceed with normal triage. Patient denies a cough. Patient denies shortness of breath or difficulty breathing. Patient denies measured and/or subjective temperature greater than 100.4F prior to today's visit. Patient denies travel on a cruise ship or to a country the [facility] currently lists as an affected area. Patient denies contact with known and/or suspected case of COVID-19. Ebola Screen: Patient negative for fever greater than or equal to 101.5 degrees Fahrenheit, and additional compatible Ebola Virus Disease symptoms Patient denies exposure to infectious person. Patient denies travel to an Ebola-affected area in the 21 days before illness onset. No symptoms or risks identified at this time. Onset of symptoms was April 12, 2020. 14:42 Method Of Arrival: EMS: [facility] iw 14:42 Acuity: ANGUS 3 iw 19:15 Initial Sepsis Screen: Does the patient meet any 2 criteria? No. Patient's initial sepsis screen is negative. Does the patient have a suspected source of infection? No. Patient's initial sepsis screen is negative. Risk Assessment: Do you want to hurt yourself or someone else? Patient reports no desire to harm self or others. Historical: - Allergies: 14:44 No Known Allergies; iw - PMHx: 14:44 Atrial Fib; Diabetes - NIDDM; Glaucoma; Hypertension; irregular heartbeat; Kyphosis; iw prostate radiation; - PSHx: 14:44 cataracts; iw - Immunization history:: Adult Immunizations unknown. - Social history:: Smoking status: Patient/guardian denies using. Screenin:58 Abuse screen: Denies threats or abuse. Denies injuries from another. Nutritional iw screening: No deficits noted. Tuberculosis screening: No symptoms or risk factors identified. Fall Risk None identified. Assessment: 15:00 General: Appears in no apparent distress. comfortable, Behavior is calm, cooperative. iw Pain: Complains of pain in right upper quadrant and left upper quadrant. Neuro: Level of Consciousness is awake, alert, obeys commands, Oriented to person, place. Cardiovascular: Patient's skin is warm and dry. Respiratory: Respiratory effort is even, unlabored, Respiratory pattern is regular, symmetrical. GI: Abdomen is non-distended, Reports rectal bleeding. Derm: Skin is intact. Musculoskeletal: Range of motion: limited in left hip and right hip. 16:57 Reassessment: Patient appears in no apparent distress at this time. Patient and/or iw family updated on plan of care and expected duration. Pain level reassessed. pt requesting urinal, assistance given. 19:15 General: Appears in no apparent distress. Behavior is calm, cooperative, appropriate wh for age. Pain: Denies pain. Neuro: Level of Consciousness is awake, alert, obeys commands, Oriented to person, place. Neuro: Oriented to time. Cardiovascular: Heart tones S1 S2. Respiratory: Airway is patent Respiratory effort is even, unlabored, Respiratory pattern is regular, symmetrical, Breath sounds are clear bilaterally. GI: Abdomen is flat, non-distended, Abd is soft and non tender X 4 quads. : No signs and/or symptoms were reported regarding the genitourinary system. EENT: No signs and/or symptoms were reported regarding the EENT system. Derm: Skin is intact, is healthy with good turgor, Skin is pink, warm \T\ dry. normal. Musculoskeletal: Circulation, motion, and sensation intact. 20:15 Reassessment: Patient appears in no apparent distress at this time. No changes from previously documented assessment. Patient and/or family updated on plan of care and expected duration. Pain level reassessed. TCF Family notified of POC, awaiting transport to [facility]. 21:30 Reassessment: Patient appears in no apparent distress at this time. No changes from previously documented assessment. Patient and/or family updated on plan of care and expected duration. Pain level reassessed. TCF Family notified of POC, awaiting transport to [facility]. 22:45 Reassessment: Patient appears in no apparent distress at this time. No changes from previously documented assessment. Patient and/or family updated on plan of care and expected duration. Pain level reassessed. Vital Signs: 14:44 BP 93 / 61; Pulse 59; Resp 16; Temp 97.0; Pulse Ox 99% on R/A; iw 15:46 BP 95 / 56; Pulse 55; iw 16:58 BP 102 / 66; Pulse 59; Resp 16; Pulse Ox 97% on R/A; iw 19:30 BP 101 / 75; Pulse 61; Resp 18; Pulse Ox 98% on R/A; wh 20:30 BP 102 / 85; Pulse 60; Resp 18; Pulse Ox 100% ; wh 22:00 BP 99 / 69; Pulse 67; Resp 18; Pulse Ox 100% ; wh 23:00 BP 111 / 70; Pulse 66; Resp 18; Pulse Ox 100% ; ED Course: 14:18 Patient arrived in ED. ss 14:22 Leila Stuart, RN is Primary Nurse. iw 14:38 Momo Lpoez MD is Attending Physician. monik 14:43 Triage completed. iw 15:14 XRAY Chest (1 view) In Process Unspecified. EDMS 16:32 CT Abd/Pelvis - Without Contrast In Process Unspecified. EDMS 16:58 No provider procedures requiring assistance completed. Initial lab(s) drawn. Maintain iw EMS IV. Dressing intact. Good blood return noted. Site clean \T\ dry. Gauge \T\ site: 20 LFA. 18:00 Inserted saline lock: 20 gauge in right antecubital area, using aseptic technique. 19:15 Arm band placed on right wrist. 19:15 Patient has correct armband on for positive identification. Placed in gown. Bed in low wh position. Call light in reach. Side rails up X 1. Pulse ox on. NIBP on. 22:59 Patient transferred, IV remains in place. Administered Medications: 15:58 Drug: NS 0.9% 500 ml Route: IV; Rate: bolus; Site: left forearm; iw 23:00 Follow up: Response: No adverse reaction; IV Status: Completed infusion 16:21 Drug: Flagyl 500 mg Volume: 100 ml; Route: IVPB; Rate: 200 ml/hr; Infused Over: 30 iw mins; Site: left forearm; 23:00 Follow up: Response: No adverse reaction; IV Status: Completed infusion 16:21 Drug: ProTONIX 80 mg Route: IVP; Site: left forearm; iw 23:00 Follow up: Response: No adverse reaction 16:21 Drug: NS 0.9% 1000 ml Route: IV; Rate: 125 ml/hr; Site: left forearm; iw 23:00 Follow up: Response: No adverse reaction; IV Status: Infusion continued upon transfer 17:30 Drug: Cipro 400 mg Volume: 200 ml; Route: IVPB; Infused Over: 60 mins; Site: left iw forearm; 23:00 Follow up: Response: No adverse reaction; IV Status: Completed infusion 18:36 Drug: ProTONIX 8 mg/hr Route: IV; Rate: 25 ml/hr; Site: right wrist; iw 23:00 Follow up: Response: No adverse reaction; IV Status: Infusion continued upon transfer Outcome: 16:03 ER care complete, transfer ordered by . [facility] 22:58 Transferred by [facility] to [facility], Transfer form completed. X-rays sent w/ patient. Note: Report given to [facility] 22:58 Condition: stable 22:58 Instructed on the need for transfer. 23:03 Patient left the ED. Signatures: Dispatcher [employer] EDMS Momo Lopez MD MD cha Williams, Irene, RN Roseline Petty RN RN ss Habalo, Winsy Corrections: (The following items were deleted from the chart) 14:44 14:42 Chief complaint: EMS states: black tarry stools per caregiver today was bright iw red 22:59 21:30 Reassessment: Patient appears in no apparent distress at this time. No changes wh from previously documented assessment. Patient and/or family updated on plan of care and expected duration. Pain level reassessed. 22:59 20:15 Reassessment: Patient appears in no apparent distress at this time. No changes from previously documented assessment. Patient and/or family updated on plan of care and expected duration. Pain level reassessed.
--- NOTE | 2020-04-18 16:04 | EDPHYS ---
Physician Documentation [facility] Name: Marin Bhardwaj Age: 89 yrs Sex: Male : 1930 Arrival Date: 04/18/2020 Time: 14:18 Bed 17 Private MD: ED Physician Momo Lopez HPI: 04/18 15:57 This 89 yrs old Black Male presents to ER via EMS with complaints of GI Bleeding. monik 15:57 The patient presents to the emergency department with rectal bleeding, a moderate monik amount, melena. Onset: The symptoms/episode began/occurred 2 day(s) ago. Abdominal pain: located in the right upper quadrant, left upper quadrant, right lower quadrant and left lower quadrant. Modifying factors: The symptoms are alleviated by nothing, the symptoms are aggravated by nothing. Associated signs and symptoms: Pertinent positives: near-syncope. Severity of symptoms: At their worst the symptoms were mild in the emergency department the symptoms are unchanged. The patient has not experienced similar symptoms in the past. Historical: - Allergies: 14:44 No Known Allergies; iw - PMHx: 14:44 Atrial Fib; Diabetes - NIDDM; Glaucoma; Hypertension; irregular heartbeat; Kyphosis; iw prostate radiation; - PSHx: 14:44 cataracts; iw - Immunization history:: Adult Immunizations unknown. - Social history:: Smoking status: Patient/guardian denies using. ROS: 15:59 Constitutional: Negative for fever, chills, and weight loss, Eyes: Negative for injury, monik pain, redness, and discharge, ENT: Negative for injury, pain, and discharge, Neck: Negative for injury, pain, and swelling, Cardiovascular: Negative for chest pain, palpitations, and edema, Respiratory: Negative for shortness of breath, cough, wheezing, and pleuritic chest pain, Back: Negative for injury and pain, : Negative for injury, bleeding, discharge, and swelling, MS/Extremity: Negative for injury and deformity, Skin: Negative for injury, rash, and discoloration, Psych: Negative for depression, anxiety, suicide ideation, homicidal ideation, and hallucinations, Allergy/Immunology: Negative for hives, rash, and allergies, Endocrine: Negative for neck swelling, polydipsia, polyuria, polyphagia, and marked weight changes. 15:59 Abdomen/GI: Positive for abdominal pain, black/tarry stool. 15:59 Neuro: Positive for near syncope, weakness. Exam: 15:59 Constitutional: This is a well developed, well nourished patient who is awake, alert, monik and in no acute distress. Head/Face: Normocephalic, atraumatic. Eyes: Pupils equal round and reactive to light, extra-ocular motions intact. Lids and lashes normal. Conjunctiva and sclera are non-icteric and not injected. Cornea within normal limits. Periorbital areas with no swelling, redness, or edema. ENT: Nares patent. No nasal discharge, no septal abnormalities noted. Tympanic membranes are normal and external auditory canals are clear. Oropharynx with no redness, swelling, or masses, exudates, or evidence of obstruction, uvula midline. Mucous membranes moist. Neck: Trachea midline, no thyromegaly or masses palpated, and no cervical lymphadenopathy. Supple, full range of motion without nuchal rigidity, or vertebral point tenderness. No Meningismus. Chest/axilla: Normal chest wall appearance and motion. Nontender with no deformity. No lesions are appreciated. Cardiovascular: Regular rate and rhythm with a normal S1 and S2. No gallops, murmurs, or rubs. Normal PMI, no JVD. No pulse deficits. Respiratory: Lungs have equal breath sounds bilaterally, clear to auscultation and percussion. No rales, rhonchi or wheezes noted. No increased work of breathing, no retractions or nasal flaring. Back: No spinal tenderness. No costovertebral tenderness. Full range of motion. Male : Normal genitalia with no discharge or lesions. Skin: Warm, dry with normal turgor. Normal color with no rashes, no lesions, and no evidence of cellulitis. MS/ Extremity: Pulses equal, no cyanosis. Neurovascular intact. Full, normal range of motion. Psych: Awake, alert, with orientation to person, place and time. Behavior, mood, and affect are within normal limits. 15:59 Abdomen/GI: Inspection: abdomen appears normal, Bowel sounds: normal, Palpation: mild abdominal tenderness, in all quadrants, Liver: no appreciated palpable abnormalities, Hernia: not appreciated. 15:59 Neuro: Orientation: is normal, appropriate for stated age, no acute changes, Mentation: is normal, appropriate for stated age, no acute changes, Memory: is normal, appropriate for stated age, no acute changes, Cranial nerves: grossly normal, is grossly normal based on the patient's age, no acute changes, Cerebellar function: is grossly normal, is grossly normal based on the patient's age, no acute changes, Motor: moves all fours, Sensation: no obvious gross deficits, appropriate no acute changes, Gait: not tested. Babinski testing is normal, seizure activity, is not displayed by the patient. 16:22 ECG was reviewed by the Attending Physician. [facility] Vital Signs: 14:44 BP 93 / 61; Pulse 59; Resp 16; Temp 97.0; Pulse Ox 99% on R/A; iw 15:46 BP 95 / 56; Pulse 55; iw 16:58 BP 102 / 66; Pulse 59; Resp 16; Pulse Ox 97% on R/A; iw 19:30 BP 101 / 75; Pulse 61; Resp 18; Pulse Ox 98% on R/A; wh 20:30 BP 102 / 85; Pulse 60; Resp 18; Pulse Ox 100% ; 22:00 BP 99 / 69; Pulse 67; Resp 18; Pulse Ox 100% ; wh 23:00 BP 111 / 70; Pulse 66; Resp 18; Pulse Ox 100% ; MDM: 14:38 Patient medically screened. [facility] 16:01 Data reviewed: vital signs, nurses notes, lab test result(s), EKG, radiologic studies, [facility] CT scan, plain films. 04/18 14:51 Order name: Basic Metabolic Panel; Complete Time: 15:51 04/18 14:51 Order name: CBC with Diff; Complete Time: 15:22 04/18 14:51 Order name: LFT's; Complete Time: 15:51 04/18 14:51 Order name: Magnesium; Complete Time: 15:51 04/18 14:51 Order name: NT PRO-BNP; Complete Time: 15:51 04/18 14:51 Order name: PT-INR; Complete Time: 15:22 04/18 14:51 Order name: Troponin (emerg Dept Use Only); Complete Time: 15:51 04/18 14:51 Order name: XRAY Chest (1 view); Complete Time: 17:22 04/18 14:51 Order name: Type And Screen; Complete Time: 15:55 04/18 14:51 Order name: Lipase; Complete Time: 15:51 04/18 15:54 Order name: CT Abd/Pelvis - Without Contrast; Complete Time: 17:22 monik 04/18 18:05 Order name: ABO/RH no charge EDMS 04/18 14:51 Order name: EKG; Complete Time: 14:52 04/18 14:51 Order name: Cardiac monitoring; Complete Time: 16:02 04/18 14:51 Order name: EKG - Nurse/Tech; Complete Time: 16:47 04/18 14:51 Order name: IV Saline Lock; Complete Time: 16:02 04/18 14:51 Order name: Labs collected and sent; Complete Time: 16:02 04/18 14:51 Order name: O2 Per Protocol; Complete Time: 16:02 04/18 14:51 Order name: O2 Sat Monitoring; Complete Time: 16:02 04/18 15:54 Order name: IV Saline Lock - Large Bore; Complete Time: 16:02 [facility] EC:22 Rate is 51 beats/min. Rhythm is irregularly irregular. QRS [place] is Normal. MS interval monik is normal. QRS interval is normal. QT interval is normal. No Q waves. T waves are Normal. No ST changes noted. Clinical impression: Atrial Fibrillation. Interpreted by me. Reviewed by me. Administered Medications: 15:58 Drug: NS 0.9% 500 ml Route: IV; Rate: bolus; Site: left forearm; iw 23:00 Follow up: Response: No adverse reaction; IV Status: Completed infusion 16:21 Drug: Flagyl 500 mg Volume: 100 ml; Route: IVPB; Rate: 200 ml/hr; Infused Over: 30 iw mins; Site: left forearm; 23:00 Follow up: Response: No adverse reaction; IV Status: Completed infusion 16:21 Drug: ProTONIX 80 mg Route: IVP; Site: left forearm; iw 23:00 Follow up: Response: No adverse reaction 16:21 Drug: NS 0.9% 1000 ml Route: IV; Rate: 125 ml/hr; Site: left forearm; iw 23:00 Follow up: Response: No adverse reaction; IV Status: Infusion continued upon transfer 17:30 Drug: Cipro 400 mg Volume: 200 ml; Route: IVPB; Infused Over: 60 mins; Site: left iw forearm; 23:00 Follow up: Response: No adverse reaction; IV Status: Completed infusion 18:36 Drug: ProTONIX 8 mg/hr Route: IV; Rate: 25 ml/hr; Site: right wrist; iw 23:00 Follow up: Response: No adverse reaction; IV Status: Infusion continued upon transfer Disposition: 04/18/20 16:03 Transfer ordered to [facility]. Diagnosis are Weakness, Abdominal tenderness, Type 2 diabetes mellitus, Gastrointestinal hemorrhage, unspecified - upper, Unspecified kidney failure - acute on chronic, Hypo-osmolality and hyponatremia, Constipation - rectal impaction. - Reason for transfer: Higher level of care. - Accepting physician is to [facility]. - Condition is Fair. - Problem is new. - Symptoms have improved. Signatures: Dispatcher [employer] EDMomo Ahn MD MD cha Williams, Irene RN RN Eloy Villarreal Corrections: (The following items were deleted from the chart) 17:28 16:03 04/18/2020 16:03 Transfer ordered to [facility]. [facility] Diagnosis is Weakness; Abdominal tenderness; Type 2 diabetes mellitus; Gastrointestinal hemorrhage, unspecified - upper; Unspecified kidney failure - acute on chronic. Reason for transfer: Higher level of care. Accepting physician is to [facility]. Condition is Fair. Problem is new. Symptoms have improved. [facility] 17:53 17:28 04/18/2020 16:03 Transfer ordered to [facility]. [facility] Diagnosis is Weakness; Abdominal tenderness; Type 2 diabetes mellitus; Gastrointestinal hemorrhage, unspecified - upper; Unspecified kidney failure - acute on chronic; Hypo-osmolality and hyponatremia. Reason for transfer: Higher level of care. Accepting physician is to [facility]. Condition is Fair. Problem is new. Symptoms have improved. [facility] 23:03 17:53 04/18/2020 16:03 Transfer ordered to [facility]. Diagnosis is Weakness; Abdominal tenderness; Type 2 diabetes mellitus; Gastrointestinal hemorrhage, unspecified - upper; Unspecified kidney failure - acute on chronic; Hypo-osmolality and hyponatremia; Constipation - rectal impaction. Reason for transfer: Higher level of care. Accepting physician is to [facility]. Condition is Fair. Problem is new. Symptoms have improved. [facility]
[2020-04-18] MEDS ORDERED: NA CHLORIDE 0.9% 1,000 ML ONE (16:11)
[2020-04-18] MEDS ORDERED: PANTOPRAZOLE 40 MG INJ ONE (16:11)
[2020-04-18] MEDS ORDERED: CIPROFLOXACIN 400mg IV 400 MG/200 ML BAG IV ONE (16:12)
[2020-04-18] MEDS ORDERED: METRONIDAZOLE 500mg IVPB 500 MG/100 ML BAG IV ONE (16:12)
--- NOTE | 2020-04-18 17:06 | RAD REPORT ---
EXAM DESCRIPTION: CT - Abdomen Pelvis Wo Contrast - 04/18/2020 4:31 pm CLINICAL HISTORY: Abdominal pain COMPARISON: None TECHNIQUE: Computed axial tomography of the abdomen and pelvis was obtained. IV and oral contrast we re not requested. All CT scans are performed using dose optimization technique as appropriate and may include automated exposure control or mA/KV adjustment according to patient size. FINDINGS: The evaluation of solid organs, vessels and bowel is limited secondary to the lack of con trast administration. The liver, spleen, pancreas, left adrenal and left kidney appear grossly normal. Small right renal cyst. 23 millimeter right adrenal nodule. Cholelithiasis without gallbladder wall thickening Rectum is mildly distended with stool. There is no evidence of diverticulitis. Spondylosis lumbar spine resulting in spinal stenosis IMPRESSION: Cholelithiasis without cholecystitis 23 millimeter right adrenal nodule is nonspecific. Rectum is mildly distended with stool
--- NOTE | 2020-04-18 17:08 | RAD REPORT ---
EXAM DESCRIPTION: Tanya Single View04/18/2020 3:14 pm CLINICAL HISTORY: Abdominal COMPARISON: March 2001 FINDINGS: The lungs appear clear of acute infiltrate. The heart is borderline enlarged. Aorta is to rtuous/ectatic. Calcific densities upper left hemithorax probably either granulomas or pleural calcif ications IMPRESSION: No acute abnormalities displayed
[2020-04-18] MEDS ORDERED: PANTOPRAZOLE INJ 80 MG in NA CHLORIDE 0.9% 250 ML IV SCH (19:00)
[2020-04-18 23:28] VITALS: TEMP 97
[2020-04-18 23:33] VITALS: O2SAT 100
[2020-04-18 23:37] VITALS: BP 111/70
--- NOTE | 2020-04-19 07:46 | EKG ---
Test Date: 2020-04-18 Test Time: 16:15:04 Materials Mgmt Tech: TOVA MEASUREMENT RESULTS: Intervals: Rate: 51 [place]: QRSD: 102 QT: 472 QTc: 435 [place]: P: [place]: QRS: -48 T: 55 INTERPRETIVE STATEMENTS: Atrial fibrillation with slow ventricular response with a competing junctional pacemaker Left axis deviation Septal infarct, age undetermined Abnormal ECG Compared to ECG 04/01/2020 16:08:33 No significant changes Electronically Signed On 04-19-20 07:44:29 CDT by Sergo Ronquillo
== END 2020-04-18 23:03 | disposition short-term general hospital (02) ==
LOC: ER 13:33
DX: K92.1 Melena (principal); E87.1 Hypo-osmolality and hyponatremia; K56.41 Fecal impaction; E11.22 Type 2 diabetes mellitus with diabetic chronic kidney disease; I12.9 Hypertensive chronic kidney disease with stage 1 through stage 4 chronic kidney disease, or unspecified chronic kidney disease; N18.9 Chronic kidney disease, unspecified; N17.9 Acute kidney failure, unspecified; R10.819 Abdominal tenderness, unspecified site
CPT/HCPCS: 96365; 96367; 96368; 93005; 85025; 80048; 36415; 86900; 83735; 86850; 85610; 86901; 80076; 84484; 83690; 83880; 74176; 71045; 96375; 99285; 96366; C9113; J7050; J7030; J0744

== ENCOUNTER 2020-06-27 12:31 | Observation (INO) | payer OTHER, SELFPAY ==
--- NOTE | 2020-06-27 13:06 | RAD REPORT ---
EXAM DESCRIPTION: CT - Head Brain Wo Cont - 06/27/2020 12:53 pm CLINICAL HISTORY: headache, right periocular shingles Headache, drowsiness COMPARISON: No comparisons TECHNIQUE: All CT scans are performed using dose optimization technique as appropriate and may inclu de automated exposure control or mA/KV adjustment according to patient size. FINDINGS: No intracranial hemorrhage, hydrocephalus or extra-axial fluid collection.Advanced general ized brain atrophy is present with advanced periventricular and deep white matter chronic microvascul ar ischemic changes.No areas of brain edema or evidence of midline shift. The paranasal sinuses and mastoids are clear. The calvarium is intact. Right-sided scalp soft tissue edema/swelling noted. IMPRESSION: No acute intracranial abnormality.
--- NOTE | 2020-06-27 13:18 | RAD REPORT ---
EXAM DESCRIPTION: US - Extremity Venous Uni Ltd - 06/27/2020 1:12 pm CLINICAL HISTORY: Pain;Swelling Leg swelling and edema. COMPARISON: Extrem Venous W Compress Kam dated 04/01/2020 FINDINGS: Left lower extremity venous system was interrogated with Doppler technique. Normal flow, c ompressibility and augmentation was noted. There is no DVT present. IMPRESSION: No evidence of left lower extremity deep venous thrombosis.
[2020-06-27 13:34] LABS: Absolute Lymphocytes (CBC) 1.4 K/uL (0.7-4.9); Basophils % 0.4 % (0-1.3); Hematocrit 31.6 % (39.6-49.0); Lymphocytes % 22.2 % (15.3-44.8); MPV 6.5 fL (7.6-11.3); RBC Red Blood Cell Count 3.45 M/uL (4.33-5.43)
[2020-06-27 13:42] LABS: Protime INR 1.68
[2020-06-27 13:52] LABS: Potassium 3.4 mmol/L (3.5-5.1)
[2020-06-27] MEDS ORDERED: NA CHLORIDE 0.9% 500 ML ONE (14:52)
[2020-06-27] MEDS ORDERED: POTASSIUM CL SA 10 MEQ TAB PO ONE (14:55)
--- NOTE | 2020-06-27 16:33 | ER ---
Nurse's Notes [facility] Name: Marin Bhardwaj Age: 89 yrs Sex: Male : 1930 Arrival Date: 06/27/2020 Time: 12:35 Bed 8 Private MD: Diagnosis: Ventricular premature depolarization;Weakness;Altered mental status, unspecified;Hypokalemia;Unspecified combined systolic (congestive) and diastolic (congestive) heart failure Presentation: 06/27 12:36 Chief complaint: EMS states: pt from home states he has shingles and is having more tw2 pain, but also has become more lethargic the past 3 days, and increased edema to left hands and feet, family is poor historian upon our arrival but states home health was there to see him this morning. Coronavirus screen: At this time, the client does not indicate any symptoms associated with coronavirus-19. Ebola Screen: Patient denies travel to an Ebola-affected area in the 21 days before illness onset. Initial Sepsis Screen: Does the patient meet any 2 criteria? No. Patient's initial sepsis screen is negative. Does the patient have a suspected source of infection? No. Patient's initial sepsis screen is negative. Risk Assessment: Do you want to hurt yourself or someone else? Patient reports no desire to harm self or others. Onset of symptoms was June 27, 2020. 12:36 Method Of Arrival: EMS: [employer] [facility] tw2 12:36 Acuity: ANGUS 3 tw2 Triage Assessment: 12:38 General: Appears uncomfortable, Behavior is cooperative. Pain: Complains of pain in tw2 forehead and right tenriism. Historical: - Allergies: 12:39 No Known Allergies; tw2 - PMHx: 12:39 prostate radiation; irregular heartbeat; Glaucoma; Atrial Fib; Diabetes - NIDDM; tw2 Hypertension; Kyphosis; - PSHx: 12:39 cataracts; tw2 - Immunization history:: Adult Immunizations. - Social history:: Smoking status: . - Family history:: not pertinent. - Hospitalizations: : No recent hospitalization is reported. Screenin:40 Abuse screen: Denies threats or abuse. Nutritional screening: No deficits noted. tw2 Tuberculosis screening: No symptoms or risk factors identified. Fall Risk Secondary diagnosis (15 points) impaired mobility. Assessment: 12:35 General: Appears in no apparent distress. Behavior is cooperative, appropriate for age, tw2 quiet. Pain: Complains of pain in face and right tenriism and forehead. Neuro: Level of Consciousness is awake, alert, obeys commands, Oriented to person. Cardiovascular: Heart tones S1 S2 Patient's skin is warm and dry. Respiratory: Airway is patent Respiratory effort is even, unlabored, Respiratory pattern is regular, symmetrical, Breath sounds are clear bilaterally. GI: Abdomen is flat, Bowel sounds present X 4 quads. : No signs and/or symptoms were reported regarding the genitourinary system. EENT: No signs and/or symptoms were reported regarding the EENT system. Derm: appears to be shingles on RIGHT side of face and tenriism are. Musculoskeletal: Range of motion: intact in all extremities. 12:54 Reassessment: Pt currently in radiology. sv 13:30 Reassessment: Patient appears in no apparent distress at this time. No changes from tw2 previously documented assessment. Patient and/or family updated on plan of care and expected duration. Pain level reassessed. 14:14 Reassessment: Patient appears in no apparent distress at this time. No changes from tw2 previously documented assessment. Patient and/or family updated on plan of care and expected duration. Pain level reassessed. 15:15 Reassessment: Patient appears in no apparent distress at this time. No changes from tw2 previously documented assessment. Patient and/or family updated on plan of care and expected duration. Pain level reassessed. 16:15 Reassessment: Patient appears in no apparent distress at this time. No changes from tw2 previously documented assessment. Patient and/or family updated on plan of care and expected duration. Pain level reassessed. 17:15 Reassessment: Patient appears in no apparent distress at this time. No changes from tw2 previously documented assessment. Patient and/or family updated on plan of care and expected duration. Pain level reassessed. Vital Signs: 12:36 BP 139 / 79; Pulse 61; Resp 18; Temp 97.8(TE); Pulse Ox 100% on R/A; tw2 13:30 BP 139 / 79; Pulse 61; Resp 16; Pulse Ox 97% on R/A; tw2 14:08 BP 119 / 76; Pulse 57; Resp 17; Pulse Ox 97% on R/A; tw2 14:52 BP 138 / 95; Pulse 95; Resp 18; Pulse Ox 97% ; sv 15:45 BP 135 / 85; Pulse 81; Resp 20; Pulse Ox 100% on R/A; tw2 16:45 BP 123 / 92; Pulse 111; Resp 18; Pulse Ox 97% on R/A; tw2 17:16 BP 138 / 87; Pulse 65; Resp 16; Pulse Ox 97% on R/A; tw2 ED Course: 12:35 Patient arrived in ED. tw2 12:35 Kennedy Tan MD is Attending Physician. rn 12:35 Bed in low position. Call light in reach. Side rails up X2. hall monitor on. Pulse tw2 ox on. NIBP on. Warm blanket given. 12:38 Triage completed. tw2 12:38 Arm band placed on. tw2 12:53 CT Head Brain wo Cont In Process Unspecified. EDMS 13:12 Extremity Venous Uni Ltd US In Process Unspecified. EDMS 13:33 Jessica Moser RN is Primary Nurse. tw2 13:34 Missed attempt(s): 22 gauge in right antecubital area. blood collected. Bleeding tw2 controlled, band aid applied, catheter tip intact. Missed attempt(s): 22 gauge in left antecubital area. notified DANE Thomas. Bleeding controlled, band aid applied, catheter tip intact. 13:44 Inserted saline lock: 20 gauge in right antecubital area, using aseptic technique. sv Blood collected. Flushed right antecubital with 5 ml normal saline. 15:00 Straight cath inserted, using sterile technique, 18 Fr. Specimen obtained. Returned tw2 approx 550 ml urine returned, DANE Perez served as aix system administrator, pts spouse and daughter remained at bedside during procedure. Patient tolerated well. 15:28 Urine Microscopic Only Sent. tw2 16:32 James Echevarria is Hospitalizing Provider. rn 18:38 No provider procedures requiring assistance completed. Patient admitted, IV remains in tw2 place. Administered Medications: 14:46 Drug: NS 0.9% 500 ml Route: IV; Rate: bolus; Site: right antecubital; tw2 17:17 Follow up: Response: No adverse reaction; IV Status: Completed infusion; IV Intake: tw2 500ml 14:48 Drug: Potassium Chloride 40 mEq Route: PO; tw2 17:55 Follow up: Response: No adverse reaction tw2 Intake: 17:17 IV: 500ml; Total: 500ml. tw2 Output: 15:00 Urine: 550ml (Straight Cath); Total: 550ml. tw2 Outcome: 16:32 Decision to Hospitalize by Provider. rn 18:38 Patient left the ED. 18:38 Admitted to Med/surg via stretcher. tw2 18:38 Condition: stable tw2 18:38 Instructed on the need for admit. Signatures: Dispatcher [employer] Martha Cooney, Kennedy Weaver RN, MD MD rn Baxter, Heather, RN RN Jessica Moser RN RN tw2
--- NOTE | 2020-06-27 16:33 | EDPHYS ---
Physician Documentation [facility] Name: Marin Bhardwaj Age: 89 yrs Sex: Male : 1930 Arrival Date: 06/27/2020 Time: 12:35 Bed 8 Private MD: ED Physician Kennedy Tan HPI: 06/27 16:27 This 89 yrs old Black Male presents to ER via EMS with complaints of shingles, Edema, rn AMS. 16:27 The patient presents with confusion, decreased responsiveness. Onset: The rn symptoms/episode began/occurred this morning. Possible causes: unknown. Current symptoms: In the emergency department the patient's symptoms have improved. The patient has not experienced similar symptoms in the past. Family brought him in for increased confusion, difficult to wake up this morning, now better, report treatment for shingles, decreased appetite, and increased swelling of legs. No chest pain/fever/vomiting. . Historical: - Allergies: 12:39 No Known Allergies; tw2 - PMHx: 12:39 prostate radiation; irregular heartbeat; Glaucoma; Atrial Fib; Diabetes - NIDDM; tw2 Hypertension; Kyphosis; - PSHx: 12:39 cataracts; tw2 - Immunization history:: Adult Immunizations. - Social history:: Smoking status: . - Family history:: not pertinent. - Hospitalizations: : No recent hospitalization is reported. ROS: 16:27 Constitutional: Negative for fever, chills, and weight loss, Eyes: Negative for injury, rn pain, redness, and discharge, Neck: Negative for injury, pain, and swelling, Cardiovascular: Negative for chest pain Respiratory: Negative for shortness of breath, cough, wheezing, and pleuritic chest pain, Abdomen/GI: Negative for abdominal pain, nausea, vomiting, diarrhea, and constipation, MS/Extremity: Negative for injury and deformity, Skin: + shingles right forehead Neuro: Negative for numbness, tingling, and seizure, + headache and generalized weakness Exam: 16:27 Constitutional: Elderly male, no acute distress Head/Face: Normocephalic, atraumatic. rn Eyes: + right forehead and periorbital are with crusting lesions in isolated distribution. Cardiovascular: Irregularly irregular Respiratory: No increased work of breathing, no retractions or nasal flaring. Abdomen/GI: Soft, non-tender MS/ Extremity: Pulses equal, no cyanosis. Neurovascular intact. Full, normal range of motion. Equal circumference. 1+ pitting edema bilateral lower ext. Neuro: Awake, hard of hearing, moves all 4 extremities, answers questions and follows commands. Oriented to person and situation. Vital Signs: 12:36 BP 139 / 79; Pulse 61; Resp 18; Temp 97.8(TE); Pulse Ox 100% on R/A; tw2 13:30 BP 139 / 79; Pulse 61; Resp 16; Pulse Ox 97% on R/A; tw2 14:08 BP 119 / 76; Pulse 57; Resp 17; Pulse Ox 97% on R/A; tw2 14:52 BP 138 / 95; Pulse 95; Resp 18; Pulse Ox 97% ; sv 15:45 BP 135 / 85; Pulse 81; Resp 20; Pulse Ox 100% on R/A; tw2 16:45 BP 123 / 92; Pulse 111; Resp 18; Pulse Ox 97% on R/A; tw2 17:16 BP 138 / 87; Pulse 65; Resp 16; Pulse Ox 97% on R/A; tw2 MDM: 12:35 Patient medically screened. rn 16:27 Differential Diagnosis: CVA, electrolyte abnormality, pneumonia, TIA, UTI, volume rn depletion, arrythmia. Data reviewed: vital signs, nurses notes, lab test result(s), EKG, radiologic studies, CT scan, plain films, ultrasound, and as a result, I will admit patient. Counseling: I had a detailed discussion with the patient and/or guardian regarding: the historical points, exam findings, and any diagnostic results supporting the discharge/admit diagnosis, lab results, radiology results, the need for further work-up and treatment in the hospital. Admission orders: after a detailed discussion of the patient's condition and case, the admit orders are written by me. ED course: Pt with some improvement of mental status, family reports still seems a little confused and weak. + low potassium, + CHF, frequent PVCs with bigeminy, will obs to Dr. Echevarria. . 06/27 12:39 Order name: CBC with Diff; Complete Time: 14:29 rn 06/27 12:39 Order name: Basic Metabolic Panel; Complete Time: 14:29 rn 06/27 12:39 Order name: Protime (+inr); Complete Time: 14:29 rn 06/27 12:39 Order name: Ptt, Activated; Complete Time: 14:29 rn 06/27 12:39 Order name: Urine Microscopic Only rn 06/27 12:39 Order name: BNP; Complete Time: 14:29 rn 06/27 12:39 Order name: IV Start; Complete Time: 13:45 rn 06/27 12:39 Order name: CT Head Brain wo Cont; Complete Time: 13:17 rn 06/27 12:39 Order name: Urine Dipstick-Ancillary (obtain specimen); Complete Time: 15:28 rn 06/27 12:39 Order name: Extremity Venous Uni Ltd US; Complete Time: 13:21 rn 06/27 12:39 Order name: Procalcitonin; Complete Time: 14:29 rn 06/27 15:33 Order name: Urine Dipstick--Ancillary (enter results) bd 06/27 14:40 Order name: Straight Cath - Urine; Complete Time: 15:21 tw2 Administered Medications: 14:46 Drug: NS 0.9% 500 ml Route: IV; Rate: bolus; Site: right antecubital; tw2 17:17 Follow up: Response: No adverse reaction; IV Status: Completed infusion; IV Intake: tw2 500ml 14:48 Drug: Potassium Chloride 40 mEq Route: PO; tw2 17:55 Follow up: Response: No adverse reaction tw2 Disposition: 06/27/20 16:32 Hospitalization ordered by James Echevarria for Observation. Preliminary diagnosis are Ventricular premature depolarization, Weakness, Altered mental status, unspecified, Hypokalemia, Unspecified combined systolic (congestive) and diastolic (congestive) heart failure. - Bed requested for Telemetry/MedSurg (observation). - Status is Observation. hb - Condition is Stable. - Problem is new. - Symptoms have improved. Signatures: Dispatcher [employer] EDMS Beverly Pinedo Roman, MD MD rn Baxter, Heather, RN RN hb Wise, Tara, RN RN tw2 Corrections: (The following items were deleted from the chart) 18:09 16:32 Hospitalization Ordered by James Echevarria for Observation. Preliminary diagnosis bd is Ventricular premature depolarization; Weakness; Altered mental status, unspecified; Hypokalemia; Unspecified combined systolic (congestive) and diastolic (congestive) heart failure. Bed requested for Telemetry/MedSurg (observation). Status is Observation. Condition is Stable. Problem is new. Symptoms have improved. rn 18:38 18:09 06/27/2020 16:32 Hospitalization Ordered by James Echevarria for Observation. hb Preliminary diagnosis is Ventricular premature depolarization; Weakness; Altered mental status, unspecified; Hypokalemia; Unspecified combined systolic (congestive) and diastolic (congestive) heart failure. Bed requested for Telemetry/MedSurg (observation). Status is Observation. Condition is Stable. Problem is new. Symptoms have improved. bd
[2020-06-27 16:35] LABS: Urine Blood TRACE (NEG); Urine Glucose NEGATIVE (NEG); Urine Protein NEGATIVE (NEG); Urine pH 5.5 (5.0-7.0)
[2020-06-27 17:05] LABS: Urine Bacteria <20 /HPF (NONE SEEN); Urine Culture Reflex Order NOT NEEDED; Urine RBC <5 /HPF (NONE SEEN)
[2020-06-27 17:06] LABS: Urine Amorphous Sediment 3+ /HPF (NONE SEEN)
--- NOTE | 2020-06-27 17:25 | P.HP ---
Certification for Inpatient Patient admitted to: Observation With expected LOS: <2 Midnights Practitioner: I am a practitioner with admitting privileges, knowledge of patient current condition, hospital course, and medical plan of care. Services: Services provided to patient in accordance with Admission requirements found in Title 42 Section 412.3 of the Code of Federal Regulations Patient History Date of Service: 06/27/20 Reason for admission: Generalized weakness History of Present Illness: 89-year-old gentleman with a history of hypertension, atrial fibrillation, prostate cancer, bedridden was brought to the emergency department by her family because patient was complaining of feeling sick. He developed herpes zoster on his right forehead and eye about 5 days ago. The lesions are crusted but patient cannot open his eyes due to discharge and swelling of his eyelid. Blood work in the ED shows elevated creatinine above baseline, elevated BNP and anemia. CT head showed right-sided scalp swelling and edema, no acute intracranial abnormality. EKG demonstrates irregular rhythm, multiple PVCs. I suspect patient symptoms are related to herpes zoster infection. Patient is hospitalized for further management. Allergies No Known Allergies Allergy (Verified 04/01/20 20:43) Home Medications: Bumetanide 2 mg PO BID 10/09/17 Amlodipine Besylate [Norvasc] 5 mg PO DAILY #30 tablet 04/02/20 Apixaban [Eliquis] 5 mg PO BID #60 tablet 04/02/20 Metolazone [Zaroxolyn] 5 mg PO DAILY #30 tablet 04/02/20 - Past Medical/Surgical History Diabetic: Yes -: Prostate CA -: Afib -: HTN -: DM -: glaucoma -: kyphosis -: L. elbow sx - Family History Family History: Reviewed- Non-Contributory - Social History Alcohol use: No CD- Drugs: No Caffeine use: No Review of Systems is unable to be obtained (Due to confusion) Physical Examination - Physical Exam General: Confused HEENT: Other (Vesicular rash and edema right frontal scalp eyelid.) Neck: Supple Respiratory: Clear to auscultation bilaterally, Normal air movement Cardiovascular: Normal S1 S2, Edema (Trace bilateral pedal edema), Irregular heart rate/rhythm Gastrointestinal: Normal bowel sounds, Soft and benign, No tenderness Musculoskeletal: Swelling (Bilateral knee swelling) Integumentary: No rashes Neurological: Other (Moves all extremities.) - Studies Laboratory Data (last 24 hrs) 06/27/20 13:22: PT 19.6 H, INR 1.68, APTT 32.7 06/27/20 13:22: Sodium 138, Potassium 3.4 L, BUN 66 H, Creatinine 2.35 H, Glucose 102 06/27/20 13:22: WBC 6.4, Hgb 10.5 L, Hct 31.6 L, Plt Count 217 Assessment and Plan - Problems (Diagnosis) (1) Herpes zoster ophthalmicus of right eye Current Visit: Yes Status: Acute (2) Acute worsening of stage 4 chronic kidney disease Current Visit: Yes Status: Acute (3) Atrial fibrillation Onset Date: 10/10/17 Current Visit: No Status: Acute (4) DM2 (diabetes mellitus, type 2) Onset Date: 10/10/17 Current Visit: No Status: Acute - Plan Place patient under observation. Hold diuretics. Gentle hydration Start valacyclovir. Zovirax ointment to apply to the eye. Consult to senior court office assistant. Case discussed with Dr. Curiel. Monitor renal function. Monitor for agitation. - Advance Directives Does patient have a Living Will: No Does patient have a Durable POA for Healthcare: No - Code Status/Comfort Care Code Status Assessed: Yes Code Status: Do Not Attempt Resuscitat
[2020-06-27] MEDS ORDERED: ACETAMINOPHEN 500 MG TAB PO PRN (19:15)
[2020-06-27] MEDS ORDERED: NA CHLORIDE 0.9% 1,000 ML IV SCH (19:15)
[2020-06-27] MEDS ORDERED: MORPHINE 2 MG/ML SYR IV PRN (19:15)
[2020-06-27 19:45] VITALS: BMI 29.0
[2020-06-27] MEDS ORDERED: ACYCLOVIR INJ 800 MG in NA CHLORIDE 0.9% 100 ML IVPB SCH ×2 (21:00→22:00)
[2020-06-27] MEDS ORDERED: ACYCLOVIR NA 500 MG/VIAL IVPB ONE (21:29)
[2020-06-27] MEDS ORDERED: NA CHLORIDE 0.9% 100 ML IV ONE (21:38)
[2020-06-27] MEDS ORDERED: MELATONIN 5 MG TABLET PO ONE (22:27)
[2020-06-28 03:54] LABS: Absolute Lymphocytes (CBC) 1.4 K/uL (0.7-4.9); Basophils % 0.4 % (0-1.3); Hematocrit 31.2 % (39.6-49.0); Lymphocytes % 26.3 % (15.3-44.8); MPV 6.5 fL (7.6-11.3); RBC Red Blood Cell Count 3.35 M/uL (4.33-5.43)
[2020-06-28 04:07] LABS: Magnesium 2.1 mg/dL (1.8-2.4); Phosphorus 4.2 mg/dL (2.5-4.9); Potassium 3.4 mmol/L (3.5-5.1)
[2020-06-28] MEDS ORDERED: POTASSIUM CL SA 10 MEQ TAB PO ONE (04:26)
[2020-06-28] MEDS ORDERED: ACYCLOVIR INJ 800 MG in NA CHLORIDE 0.9% 100 ML IVPB SCH (09:00)
--- NOTE | 2020-06-28 12:04 | EKG ---
Test Date: 2020-06-27 Test Time: 14:11:17 Assistant Head Cashier: MACY MEASUREMENT RESULTS: Intervals: Rate: 63 [place]: QRSD: 178 QT: 538 QTc: 550 [place]: P: [place]: QRS: 88 T: 268 INTERPRETIVE STATEMENTS: Undetermined rhythm Left bundle branch block Abnormal ECG Compared to ECG 04/18/2020 16:15:04 Left bundle-branch block now present Atrial fibrillation no longer present Left-axis deviation no longer present Myocardial infarct finding no longer present Electronically Signed On 06-28-20 12:01:35 CDT by Sergo Ronquillo
--- NOTE | 2020-06-28 12:36 | P.DS ---
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 He developed herpes zoster on his right forehead and eye about 5 days ago. The lesions are crusted but patient cannot open his eyes due to discharge and swelling of his eyelid. Blood work in the ED shows elevated creatinine above baseline, elevated BNP and anemia. CT head showed right-sided scalp swelling and edema, no acute intracranial abnormality. EKG demonstrates irregular rhythm, multiple PVCs. I suspect patient symptoms are related to herpes zoster infection. Patient is hospitalized for further management. Hospital Course: Patient admitted to the medical floor and treated for acute herpes zoster infection with IV acyclovir. He was also treated for acute on chronic kidney disease briefly IV hydration. Patient was awake and tolerated feeding was apparently at baseline. He was seen and evaluated by site operations manager-De. Crabtree. No iritis per ophthalmology. Patient is discharged to continue his oral valacyclovir. Added acyclovir ointment to apply topically. Vital Signs/Physical Exam: Temp Pulse Resp BP Pulse Ox 98.8 F 58 16 129/79 100 06/28/20 12:00 06/28/20 12:00 06/28/20 12:00 06/28/20 12:00 06/28/20 12:00 General: In no apparent distress, Other (Awake) HEENT: Other (Herpes zoster-ophthalmic division on the right.) Respiratory: Clear to auscultation bilaterally, Normal air movement Cardiovascular: Edema (1+ bilateral lower extremity pitting edema) Capillary refill: <2 Seconds Gastrointestinal: Normal bowel sounds, Soft and benign, No tenderness Neurological: Other (Moves all extremities.) Laboratory Data at Discharge: WBC 5.2 K/uL (4.3-10.9) D 06/28/20 03:42 Hgb 10.6 g/dL (13.6-17.9) L 06/28/20 03:42 Hct 31.2 % (39.6-49.0) L 06/28/20 03:42 Plt Count 156 K/uL (152-406) D 06/28/20 03:42 PT 19.6 SECONDS (9.5-12.5) H 06/27/20 13:22 INR 1.68 06/27/20 13:22 APTT 32.7 SECONDS (24.3-36.9) 06/27/20 13:22 Sodium 140 mmol/L (136-145) 06/28/20 03:42 Potassium 3.9 mmol/L (3.5-5.1) 06/28/20 11:51 BUN 64 mg/dL (7-18) H 06/28/20 03:42 Creatinine 2.23 mg/dL (0.55-1.3) H 06/28/20 03:42 Glucose 103 mg/dL (74-106) 06/28/20 03:42 Phosphorus 4.2 mg/dL (2.5-4.9) 06/28/20 03:42 Magnesium 2.1 mg/dL (1.8-2.4) D 06/28/20 03:42 Home Medications: Amlodipine Besylate [Norvasc] 5 mg PO DAILY #30 tablet 04/02/20 Apixaban [Eliquis] 5 mg PO BID #60 tablet 04/02/20 Colchicine 1 tab PO DAILY 06/27/20 Gabapentin [Neurontin*] 100 mg PO BID 06/27/20 Metolazone [Zaroxolyn] 10 mg PO DAILY 06/27/20 Polyethylene Glycol 3350 [Miralax] 17 gm PO BID 06/27/20 Valacyclovir [Valtrex*] 1,000 mg PO TID 06/27/20 Acyclovir [Zovirax] 1 appl TP DAILY #1 tube 06/28/20 New Medications: Acyclovir [Zovirax] 1 appl TP DAILY #1 tube Diet: ADA Activity: Fall precautions
[2020-06-28 16:32] VITALS: BP 139/83; TEMP 98.4; O2SAT 97
[2020-06-28] MEDS ORDERED: POLYETHYL GLY 3350 17 GM/DOSE PO SCH (21:00)
[2020-06-28] MEDS ORDERED: GABAPENTIN 100 MG CAP PO SCH (21:00)
[2020-06-28] MEDS ORDERED: PROMOD 30 ML DOSE PO SCH (21:00)
[2020-06-28] MEDS ORDERED: APIXABAN 5 MG TABLET PO SCH (21:00)
[2020-06-29] MEDS ORDERED: METOLAZONE 5 MG TABLET PO SCH (09:00)
[2020-06-29] MEDS ORDERED: COLCHICINE 0.6 MG TAB PO SCH (09:00)
--- NOTE | 2020-06-29 14:38 | CON ---
History Of Present Illness: Mr. Bhardwaj was then admitted for herpes zoster of the right eye. He is a n 89-year-old male whose states that he broke out with a rash on the right uppe r side of his face 5 days ago and is complaining of pain. Past Medical History: Positive for hypertension, atrial fibrillation, prostate cancer. He had been bedridden since he developed a clot in his leg. He also has a history of hypertension, glaucoma, and left elbow surgery. Home Medications: Bumetanide, amlodipine, Eliquis, and metolazone. Allergies: HE HAS NO KNOWN DRUG ALLERGIES. HE IS NOT TAKING ANYTHING FOR DIABETES AT THIS TIME. Past Ocular History: Positive for cataract surgery in the left eye with a complication of lens in th e left eye and according to his , he is not seeing well since that time, which was about 7 years ago. He has also had problems seeing out of the right eye for about the same amount of time. Review of Systems: The patient was unable. Family History: His daughter has diabetes. Social History: He is and does not smoke tobacco. Ocular Examination: His vision is count fingers at 2 feet in both eyes. Tactile intraocular pressur e is within normal limits. He was unable to perform confrontation field. The patient is very confus ed. His extraocular movements are normal, however, he does have of the right eye. His li ds, he has healing vesicles in V1 distribution of his right forehead. There is no Villanueva sign. His lids are normal. His conjunctiva is normal. There is no injection. His pupils are reactive. H e was not cooperative and was not able to determine if he had APD. His right iris pupil is round. H is left is peak horizontally. Cornea has 2+ arcus in both eyes. There is no staining. His anterior chamber is formed in both eyes. He has a nuclear sclerotic cataract in the right eye and a posterio r chamber IOL in the left eye. On dilated funduscopic examination, his cup-to-disc is 0.85 on the ri ght with thin superior and inferior . His left eye has 0.95 cup with thin superior and inf erior . The vitreous is clear. The macula and vessels appear normal. There is no obvious diabetic retinopathy. 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 He has no diabetic retinopathy . I agree with the plan to use oral valganciclovir and ointment to the eye. Recommendation: My recommendation is that the patient contact his prior eye doctor, Dr. Evelio quintero, to see the glaucoma medications are appropriate since the patient is unable to come in for examin [facility]. REUBEN/MARIELA Voice ID: [id number] Report ID: [id number]
== END 2020-06-28 19:30 | disposition home health service (06) ==
LOC: ER 12:31 → ERHOLD 17:36 → 4TH 18:34
PROVIDERS: ADMIT Internal Medicine; ATTEND Internal Medicine
DX: B02.30 Zoster ocular disease, unspecified (principal); E11.22 Type 2 diabetes mellitus with diabetic chronic kidney disease; I13.0 Hypertensive heart and chronic kidney disease with heart failure and stage 1 through stage 4 chronic kidney disease, or unspecified chronic kidney disease; I50.40 Unspecified combined systolic (congestive) and diastolic (congestive) heart failure; N18.4 Chronic kidney disease, stage 4 (severe); I48.91 Unspecified atrial fibrillation; E87.6 Hypokalemia; H40.9 Unspecified glaucoma; D64.9 Anemia, unspecified; H25.11 Age-related nuclear cataract, right eye; R41.82 Altered mental status, unspecified; I49.3 Ventricular premature depolarization; M40.209 Unspecified kyphosis, site unspecified; Z20.828 Contact with and (suspected) exposure to other viral communicable diseases; Z66 Do not resuscitate; Z74.01 Bed confinement status; Z85.46 Personal history of malignant neoplasm of prostate; Z83.3 Family history of diabetes mellitus
CPT/HCPCS: 96361; 93005; 85025 ×2; 80048 ×2; 36415 ×2; 83735; 84100; 84132; 85610; 82947; 85730; 84145; 83880; 70450; 93971; 94760; 94762; 51702; 96360; 99285; U0002; J7040; J7030; J0133; G0378 ×3; 81003; 81015

== ENCOUNTER 2020-07-15 09:36 | Inpatient (IN) | payer OTHER, SELFPAY ==
--- NOTE | 2020-07-15 10:09 | RAD REPORT ---
EXAM DESCRIPTION: RAD - Chest Single View - 07/15/2020 10:02 am CLINICAL HISTORY: CHEST PAIN COMPARISON: Portable April 18 TECHNIQUE: AP portable chest image was obtained 07/15/2020 10:02 am . FINDINGS: Lung volumes are diminished, particularly on the right. Resuscitation paddle covers much o f the right chest. Increased opacification in the mid right chest is believed to be summation artifac t of the scapula, resuscitation paddle the lung parenchyma. This can be monitored on subsequent imagi ng. Calcified pleural plaquing seen on the left. No diffuse pulmonary edema pattern seen. Heart size is upper normal to slightly enlarged, similar to comparison. Vasculature is mildly promine nt. Trachea is midline. No measurable pleural effusion and no pneumothorax. No acute bony abnormality seen. No acute aortic findings suspected. IMPRESSION: No diffuse pulmonary edema or significant lung parenchymal process. Focal increased density in the mid right lung field is favored to be a summation artifact. This can b e re-evaluated on subsequent imaging to exclude infiltrate. Heart size and vasculature are prominent. Patient can be monitored for developing failure or volume o verload.
[2020-07-15] MEDS ORDERED: CEFTRIAXONE/SWI 1gm 1 GM/10 ML SYR ONE (10:12)
[2020-07-15] MEDS ORDERED: FAMOTIDINE 20 MG/2 ML VIAL IV ONE (10:12)
[2020-07-15] MEDS ORDERED: NA CHLORIDE 0.9% 1,000 ML ONE (10:12)
[2020-07-15 10:15] LABS: Urine Blood NEGATIVE (NEG); Urine Glucose NEGATIVE (NEG); Urine Protein TRACE (NEG); Urine Specific Gravity 1.015 (1.005-1.030); Urine pH 5.5 (5.0-7.0)
[2020-07-15 10:20] LABS: Protime INR 1.77
[2020-07-15 10:21] LABS: Basophils % 0.2 % (0-1.3); Hematocrit 31.1 % (39.6-49.0); Lymphocytes % 22.1 % (15.3-44.8); MPV 7.5 fL (7.6-11.3); RBC Red Blood Cell Count 3.17 M/uL (4.33-5.43)
[2020-07-15 10:40] LABS: Albumin 2.6 g/dL (3.4-5.0); Bilirubin Direct 0.6 mg/dL (0-0.2); Magnesium 2.2 mg/dL (1.8-2.4); Protein, Total 7.3 g/dL (6.4-8.2); Troponin (Emerg Dept Use Only) 0.47 ng/mL (0.0-0.045)
[2020-07-15 10:42] LABS: Potassium 2.3 mmol/L (3.5-5.1)
[2020-07-15 10:55] LABS: Phosphorus 3.5 mg/dL (2.5-4.9)
[2020-07-15] MEDS ORDERED: POTASSIUM 25 MEQ EFFERV TAB ONE (11:03)
[2020-07-15] MEDS ORDERED: NS KCL 20MEQ 1,000 ML IV ONE (11:03)
[2020-07-15] MEDS ORDERED: KCL 20 MEQ/100 mL IVPB 20 MEQ/100 ML BAG IV ONE (11:03)
--- NOTE | 2020-07-15 11:16 | EDPHYS ---
Physician Documentation [facility] Name: Marin Bhardwaj Age: 89 yrs Sex: Male : 1930 Arrival Date: 07/15/2020 Time: 09:37 Bed 4 Private MD: ED Physician Momo Lopez HPI: 07/15 09:45 This 89 yrs old Black Male presents to ER via EMS with complaints of Shortness Of monik Breath. 09:45 The patient has shortness of breath at rest, with light activity. Onset: The monik symptoms/episode began/occurred 2 day(s) ago. Duration: The symptoms are continuous, and are steadily getting worse. The patient's shortness of breath has no apparent modifying factors. Severity of symptoms: At their worst the symptoms were mild in the emergency department the symptoms are unchanged. The patient has experienced similar episodes in the past, several times. Historical: - Allergies: 09:57 No Known Allergies; sv - PMHx: 09:43 Atrial Fib; Diabetes - NIDDM; Glaucoma; Hypertension; irregular heartbeat; Kyphosis; ss prostate radiation; - PSHx: 09:43 cataracts; ss - Immunization history:: Adult Immunizations up to date. - Family history:: not pertinent. - Social history:: Smoking status: Patient denies any tobacco usage or history of. ROS: 09:45 Constitutional: Negative for fever, chills, and weight loss, Eyes: Negative for injury, monik pain, redness, and discharge, ENT: Negative for injury, pain, and discharge, Neck: Negative for injury, pain, and swelling, Abdomen/GI: Negative for abdominal pain, nausea, vomiting, diarrhea, and constipation, Back: Negative for injury and pain, : Negative for injury, bleeding, discharge, and swelling, Skin: Negative for injury, rash, and discoloration, Neuro: Negative for headache, weakness, numbness, tingling, and seizure, Psych: Negative for depression, anxiety, suicide ideation, homicidal ideation, and hallucinations, Allergy/Immunology: Negative for hives, rash, and allergies, Endocrine: Negative for neck swelling, polydipsia, polyuria, polyphagia, and marked weight changes, Hematologic/Lymphatic: Negative for swollen nodes, abnormal bleeding, and unusual bruising. 09:45 Cardiovascular: Positive for orthopnea, palpitations. 09:45 Respiratory: Positive for cough, shortness of breath. 09:45 Abdomen/GI: Positive for abdominal distension. 09:45 MS/extremity: Positive for swelling, of the right leg and left leg. Exam: 09:45 Constitutional: This is a well developed, well nourished patient who is awake, alert, monik and in no acute distress. Head/Face: Normocephalic, atraumatic. Eyes: Pupils equal round and reactive to light, extra-ocular motions intact. Lids and lashes normal. Conjunctiva and sclera are non-icteric and not injected. Cornea within normal limits. Periorbital areas with no swelling, redness, or edema. ENT: Nares patent. No nasal discharge, no septal abnormalities noted. Tympanic membranes are normal and external auditory canals are clear. Oropharynx with no redness, swelling, or masses, exudates, or evidence of obstruction, uvula midline. Mucous membranes moist. Neck: Trachea midline, no thyromegaly or masses palpated, and no cervical lymphadenopathy. Supple, full range of motion without nuchal rigidity, or vertebral point tenderness. No Meningismus. Chest/axilla: Normal chest wall appearance and motion. Nontender with no deformity. No lesions are appreciated. Cardiovascular: Regular rate and rhythm with a normal S1 and S2. No gallops, murmurs, or rubs. Normal PMI, no JVD. No pulse deficits. Abdomen/GI: Soft, non-tender, with normal bowel sounds. No distension or tympany. No guarding or rebound. No evidence of tenderness throughout. Back: No spinal tenderness. No costovertebral tenderness. Full range of motion. Male : Normal genitalia with no discharge or lesions. MS/ Extremity: Pulses equal, no cyanosis. Neurovascular intact. Full, normal range of motion. Neuro: Awake and alert, GCS 15, oriented to person, place, time, and situation. Cranial nerves II-XII grossly intact. Motor strength 5/5 in all extremities. Sensory grossly intact. Cerebellar exam normal. Normal gait. Psych: Awake, alert, with orientation to person, place and time. Behavior, mood, and affect are within normal limits. 09:45 Respiratory: the patient does not display signs of respiratory distress, Respirations: normal, Breath sounds: decreased breath sounds. 09:45 Abdomen/GI: Inspection: distension, that is mild, that is moderate, in the suprapubic area, Bowel sounds: active, Palpation: mass, that is hard, approximately 12 cm(s), Liver: no appreciated palpable abnormalities, Hernia: not appreciated. 09:45 Musculoskeletal/extremity: ROM: full active range of motion, full passive range of motion, Circulation is intact in all extremities. Sensation intact. DVT Exam: no pain, no tenderness, negative Homans' sign noted on exam, no appreciated bluish discoloration, no erythema, no increased warmth, swelling, that is mild, of the right leg, of the left leg. Vital Signs: 09:41 BP 158 / 96; Pulse 52; Resp 20; Temp 97.3(TE); Pulse Ox 98% on R/A; Pain 0/10; ss 10:00 BP 155 / 95; Pulse 54; Resp 14; Pulse Ox 96% on R/A; sv 11:02 BP 163 / 92; Pulse 56; Resp 15; Pulse Ox 96% on R/A; sv 11:43 BP 160 / 94; Pulse 66; Resp 20; Pulse Ox 98% on R/A; sv 12:45 BP 156 / 76; Pulse 64; Resp 21; Pulse Ox 100% on R/A; sv 13:30 BP 158 / 77; Pulse 52; Resp 19; Pulse Ox 97% ; sv MDM: 09:40 Patient medically screened. monik 09:49 Differential diagnosis: Anemia asthma, Bronchitis CHF exacerbation, Chronic Obstructive monik Pulmonary Disease pneumonia, pulmonary edema, reactive airway disease, Sepsis Unstable Angina. Antibiotic administration: rocephin. The patient's Wells Deep Vein Thrombosis Score was calculated as follows: Total Score: 0-2 Pts- Low Risk. The patient's pulmonary embolism risk score was calculated as follows: Total Score: 0-2 points. This patient was found to be at low risk for a pulmonary embolism by using the Well's assessment criteria. Immunization status: Pneumococcal vaccine: Influenza vaccine: Data reviewed: vital signs, nurses notes, lab test result(s), EKG, radiologic studies, plain films. Data interpreted: telemetry nurse: rate is 60 beats/min, rhythm is atrial fibrillation, Pulse oximetry: on room air is 96 %. Test interpretation: by ED physician or midlevel provider: ECG, plain radiologic studies. 07/15 09:45 Order name: Basic Metabolic Panel; Complete Time: 11:09 monik 07/15 09:45 Order name: CBC with Diff; Complete Time: 10:27 [facility] 07/15 09:45 Order name: LFT's; Complete Time: 11:09 [facility] 07/15 09:45 Order name: Magnesium; Complete Time: 11:09 [facility] 07/15 09:45 Order name: NT PRO-BNP; Complete Time: 11:09 [facility] 07/15 09:45 Order name: PT-INR; Complete Time: 10:27 [facility] 07/15 09:45 Order name: Troponin (emerg Dept Use Only); Complete Time: 11:09 [facility] 07/15 09:45 Order name: Urine Culture [facility] 07/15 09:45 Order name: Lipase; Complete Time: 11:09 [facility] 07/15 09:45 Order name: Blood Culture Adult (2) [facility] 07/15 09:45 Order name: Lactate; Complete Time: 11:09 [facility] 07/15 09:45 Order name: COVID-19 [facility] 07/15 10:07 Order name: Urine Dipstick--Ancillary (enter results); Complete Time: 10:27 07/15 10:44 Order name: LAB Add On sv 07/15 09:45 Order name: XRAY Chest (1 view); Complete Time: 10:27 [facility] 07/15 09:45 Order name: EKG; Complete Time: 09:46 [facility] 07/15 09:45 Order name: Cardiac monitoring; Complete Time: 09:56 [facility] 07/15 09:45 Order name: EKG - Nurse/Tech; Complete Time: 09:56 [facility] 07/15 10:47 Order name: Phosphorus; Complete Time: 11:09 [facility] 07/15 13:21 Order name: SARS-COV-[address] [facility] 07/15 09:45 Order name: IV Saline Lock; Complete Time: 09:56 [facility] 07/15 09:45 Order name: Labs collected and sent; Complete Time: 09:56 [facility] 07/15 09:45 Order name: O2 Per Protocol; Complete Time: 09:56 [facility] 07/15 09:45 Order name: O2 Sat Monitoring; Complete Time: 09:56 [facility] 07/15 09:45 Order name: Urine Dipstick-Ancillary (obtain specimen); Complete Time: 09:56 [facility] 07/15 09:45 Order name: Beatriz: note pvr; Complete Time: 09:56 monik Administered Medications: Discontinued: Rocephin 1 grams IV at per protocol once; Given slow IV push per pharmacy instructions 10:16 Drug: NS 0.9% 1000 ml Route: IV; Rate: 75 ml/hr; Site: right antecubital; sv 13:35 Follow up: Response: No adverse reaction; IV Status: Infusion continued upon admission sv 10:17 Drug: Rocephin 1 grams Route: IV; Rate: per protocol; Site: right antecubital; sv 10:19 Follow up: Response: No adverse reaction; IV Status: Completed infusion; IV Intake: 10mlsv 10:17 Drug: Pepcid 20 mg Route: IVP; Site: right antecubital; sv 10:31 Follow up: Response: No adverse reaction sv 11:00 Drug: Potassium Chloride 20 mEq Route: IV; Rate: per protocol; Site: right antecubital; sv 13:00 Follow up: Response: No adverse reaction; IV Status: Completed infusion; IV Intake: sv 100ml 11:00 Drug: NS 0.9% 500 ml Route: IV; Rate: bolus; Site: right antecubital; sv 11:41 Follow up: Response: No adverse reaction; IV Status: Completed infusion; IV Intake: sv 500ml 11:01 Drug: Potassium Effervescent Tablet 25 mEq Route: PO; sv 11:42 Follow up: Response: No adverse reaction sv 11:41 Drug: NS 0.9% with KCl 20 mEq/L 1000 ml Route: IV; Rate: 75 ml/hr; Site: right sv antecubital; 13:51 Follow up: Response: No adverse reaction; IV Status: Infusion continued upon admission sv 13:51 Not Given (Physician Discretion): NS 0.9% 500 ml IV at bolus once sv Disposition: 07/15/20 11:15 Hospitalization ordered by Prince Anushka for Inpatient Admission. Preliminary diagnosis are Dyspnea, Atrial fibrillation and flutter, Anemia, unspecified, Unspecified kidney failure - acute on chronic, Hypokalemia, Unspecified combined systolic (congestive) and diastolic (congestive) heart failure, Urinary tract infection, site not specified, Retention of urine - pvr 1600 cc. - Bed requested for Telemetry/MedSurg (Inpatient). - Status is Inpatient Admission. sv - Condition is Fair. - Problem is new. - Symptoms have improved. Signatures: Dispatcher [employer] EDMS Martha Osorio RN RN sv Norah Deshpande RN RN Momo Espinoza MD MD cha Smirch, Shelby RN RN ss Corrections: (The following items were deleted from the chart) 10:50 10:46 PHOSPHORUS+C.LAB.BRZ ordered. [facility] EDAR 13:20 11:15 Hospitalization Ordered by Prince Anushka PETE for Inpatient Admission. Preliminary diagnosis is Dyspnea; Atrial fibrillation and flutter; Anemia, unspecified; Unspecified kidney failure - acute on chronic; Hypokalemia; Unspecified combined systolic (congestive) and diastolic (congestive) heart failure; Urinary tract infection, site not specified; Retention of urine - pvr 1600 cc. Bed requested for Telemetry/MedSurg (Inpatient). Status is Inpatient Admission. Condition is Fair. Problem is new. Symptoms have improved. [facility] 13:53 13:20 07/15/2020 11:15 Hospitalization Ordered by Prince Anushka PETE for Inpatient sv Admission. Preliminary diagnosis is Dyspnea; Atrial fibrillation and flutter; Anemia, unspecified; Unspecified kidney failure - acute on chronic; Hypokalemia; Unspecified combined systolic (congestive) and diastolic (congestive) heart failure; Urinary tract infection, site not specified; Retention of urine - pvr 1600 cc. Bed requested for Telemetry/MedSurg (Inpatient). Status is Inpatient Admission. Condition is Fair. Problem is new. Symptoms have improved. dw
--- NOTE | 2020-07-15 11:16 | ER ---
Nurse's Notes [facility] Name: Marin Bhardwaj Age: 89 yrs Sex: Male : 1930 Arrival Date: 07/15/2020 Time: 09:37 Bed 4 Private MD: Diagnosis: Dyspnea;Atrial fibrillation and flutter;Anemia, unspecified;Unspecified kidney failure-acute on chronic;Hypokalemia;Unspecified combined systolic (congestive) and diastolic (congestive) heart failure;Urinary tract infection, site not specified;Retention of urine-pvr 1600 cc Presentation: 07/15 09:37 Chief complaint: EMS states: Family told EMS that patient didn't appear to be breathing ss right this morning. Pt has no complaints at this time. 09:37 Method Of Arrival: EMS: [facility] ss 09:37 Acuity: ANGUS 2 ss 09:41 Coronavirus screen: Client denies travel out of the [place] in the last 14 days. Ebola ss Screen: Patient denies exposure to infectious person. Patient denies travel to an Ebola-affected area in the 21 days before illness onset. Initial Sepsis Screen: Does the patient meet any 2 criteria? No. Patient's initial sepsis screen is negative. Does the patient have a suspected source of infection? No. Patient's initial sepsis screen is negative. Risk Assessment: Do you want to hurt yourself or someone else? Patient reports no desire to harm self or others. Onset of symptoms was July 15, 2020. Triage Assessment: 09:40 General: Appears in no apparent distress. comfortable, well developed, Behavior is sv calm, cooperative, appropriate for age. Pain: Denies pain. Neuro: Level of Consciousness is awake, alert, obeys commands, Oriented to person, place, time, situation, Moves all extremities. Full function. Respiratory: Airway is patent Respiratory effort is even, unlabored, Respiratory pattern is regular, symmetrical, Onset: The symptoms/episode began/occurred yesterday, the patient has mild shortness of breath Parent/caregiver reports the patient having shortness of breath at rest. GI: Abdomen is distended, in the suprapubic area. :. Derm: Skin is normal, Pt had shingles last month to the right eye. Pt has abrasion noted to the right eye and areas of the shingles that have scabbed over. Historical: - Allergies: 09:57 No Known Allergies; sv - PMHx: 09:43 Atrial Fib; Diabetes - NIDDM; Glaucoma; Hypertension; irregular heartbeat; Kyphosis; ss prostate radiation; - PSHx: 09:43 cataracts; ss - Immunization history:: Adult Immunizations up to date. - Family history:: not pertinent. - Social history:: Smoking status: Patient denies any tobacco usage or history of. Screenin:21 Abuse screen: Denies threats or abuse. Denies injuries from another. Nutritional sv screening: No deficits noted. Tuberculosis screening: No symptoms or risk factors identified. Fall Risk No fall in past 12 months (0 pts). Secondary diagnosis (15 points) Glaucoma. IV access (20 points). Ambulatory Aid- None/Bed Rest/Nurse Assist (0 pts). Gait- Normal/Bed Rest/Wheelchair (0 pts) Mental Status- Overestimates/Forgets Limitations (15 pts.). Total [place] Fall Scale indicates High Risk Score (45 or more points). Fall prevention measures have been instituted. Side Rails Up X 2 Placed Close to Nursing Station Frequent Obs/Assessments Occuring Family Present and informed to notify staff if the need to leave the bedside As available patient and family educated on Fall Prevention Program and Strategies. Assessment: 10:22 Reassessment: Patient appears in no apparent distress at this time. No changes from sv previously documented assessment. Patient and/or family updated on plan of care and expected duration. Pain level reassessed. Patient is alert, oriented x 3, equal unlabored respirations, skin warm/dry/pink. 11:02 Reassessment: Patient appears in no apparent distress at this time. No changes from sv previously documented assessment. Patient and/or family updated on plan of care and expected duration. Pain level reassessed. Patient is alert, oriented x 3, equal unlabored respirations, skin warm/dry/pink. 11:35 Reassessment: Patient appears in no apparent distress at this time. No changes from sv previously documented assessment. Patient and/or family updated on plan of care and expected duration. Pain level reassessed. Patient is alert, oriented x 3, equal unlabored respirations, skin warm/dry/pink. 11:42 Reassessment: Dr Reveles at the bedside. sv 13:06 Reassessment: Patient appears in no apparent distress at this time. Patient and/or sv family updated on plan of care and expected duration. Pain level reassessed. Patient is alert, oriented x 3, equal unlabored respirations, skin warm/dry/pink. Vital Signs: 09:41 BP 158 / 96; Pulse 52; Resp 20; Temp 97.3(TE); Pulse Ox 98% on R/A; Pain 0/10; ss 10:00 BP 155 / 95; Pulse 54; Resp 14; Pulse Ox 96% on R/A; sv 11:02 BP 163 / 92; Pulse 56; Resp 15; Pulse Ox 96% on R/A; sv 11:43 BP 160 / 94; Pulse 66; Resp 20; Pulse Ox 98% on R/A; sv 12:45 BP 156 / 76; Pulse 64; Resp 21; Pulse Ox 100% on R/A; sv 13:30 BP 158 / 77; Pulse 52; Resp 19; Pulse Ox 97% ; sv ED Course: 09:37 Patient arrived in ED. ss 09:40 Triage completed. ss 09:40 Momo Lopez MD is Attending Physician. monik 09:43 Arm band placed on right wrist. ss 09:50 Patient has correct armband on for positive identification. Placed in gown. Bed in low sv position. Call light in reach. Side rails up X2. Adult w/ patient. library monitor on. Pulse ox on. NIBP on. Door closed. Head of bed elevated. 09:50 Inserted saline lock: 20 gauge in right antecubital area, using aseptic technique. sv Blood collected. Flushed right antecubital with 5 ml normal saline. 09:51 EKG done, by ED staff, reviewed by Momo Lopez MD. dh3 09:56 Martha Osorio, DANE is Primary Nurse. sv 09:57 Henderson cath inserted, using sterile technique, 16 Fr., by oh, balloon inflated, to sv gravity drainage, urine specimen collected. 10:00 First set of blood cultures drawn by me. sv 10:02 XRAY Chest (1 view) In Process Unspecified. EDMS 10:09 Second set of blood cultures drawn by me. sv 10:38 Awaiting lab results. sv 10:46 LAB Add On Sent. sv 11:01 Awaiting disposition. sv 11:11 Prince Reveles MD is Hospitalizing Provider. monik 11:46 Awaiting bed assignment, Awaiting: admission orders. sv 11:46 No provider procedures requiring assistance completed. Patient admitted, IV remains in sv place. intact. 11:47 COVID-19 Sent. dh3 13:07 Awaiting bed assignment. sv Administered Medications: Discontinued: Rocephin 1 grams IV at per protocol once; Given slow IV push per pharmacy instructions 10:16 Drug: NS 0.9% 1000 ml Route: IV; Rate: 75 ml/hr; Site: right antecubital; sv 13:35 Follow up: Response: No adverse reaction; IV Status: Infusion continued upon admission sv 10:17 Drug: Rocephin 1 grams Route: IV; Rate: per protocol; Site: right antecubital; sv 10:19 Follow up: Response: No adverse reaction; IV Status: Completed infusion; IV Intake: 10mlsv 10:17 Drug: Pepcid 20 mg Route: IVP; Site: right antecubital; sv 10:31 Follow up: Response: No adverse reaction sv 11:00 Drug: Potassium Chloride 20 mEq Route: IV; Rate: per protocol; Site: right antecubital; sv 13:00 Follow up: Response: No adverse reaction; IV Status: Completed infusion; IV Intake: sv 100ml 11:00 Drug: NS 0.9% 500 ml Route: IV; Rate: bolus; Site: right antecubital; sv 11:41 Follow up: Response: No adverse reaction; IV Status: Completed infusion; IV Intake: sv 500ml 11:01 Drug: Potassium Effervescent Tablet 25 mEq Route: PO; sv 11:42 Follow up: Response: No adverse reaction sv 11:41 Drug: NS 0.9% with KCl 20 mEq/L 1000 ml Route: IV; Rate: 75 ml/hr; Site: right sv antecubital; 13:51 Follow up: Response: No adverse reaction; IV Status: Infusion continued upon admission sv 13:51 Not Given (Physician Discretion): NS 0.9% 500 ml IV at bolus once sv Intake: 10:19 IV: 10ml; Total: 10ml. sv 11:41 IV: 500ml; Total: 510ml. sv 13:00 IV: 100ml; Total: 610ml. sv Output: 10:37 Urine: 1600ml (Henderson); Total: 1600ml. sv Outcome: 11:15 Decision to Hospitalize by Provider. monik 13:35 Admitted to Tele accompanied by tech, via stretcher, room 229, with chart, Report sv called to Amy VELA 13:35 Condition: stable 13:35 Instructed on the need for admit. 13:53 Patient left the ED. sv Signatures: Dispatcher [employer] Martha Cooney RN RN sv Anderson, Corey, MD MD cha Smirch, Shelby, RN RN Rosalee Velasco [facility]
--- NOTE | 2020-07-15 12:13 | P.HP ---
Certification for Inpatient Patient admitted to: Inpatient With expected LOS: >2 Midnights Practitioner: I am a practitioner with admitting privileges, knowledge of patient current condition, hospital course, and medical plan of care. 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 He presents to the ER accompanied by at an acute onset of shortness of breath which started the day before presentation. History obtained from . Patient is not very coherent. Patient denies any fever. No change from his chronic cough. He has bilateral lower extremity swelling. Associated symptoms include orthopnea. He arrived in the ER hemodynamically severely bradycardic and hypokalemia. He was medicated Sherwood catheter yielded 1600 of urine. Allergies No Known Allergies Allergy (Verified 04/01/20 20:43) Home Medications: Amlodipine Besylate [Norvasc] 5 mg PO DAILY #30 tablet 04/02/20 Apixaban [Eliquis] 5 mg PO BID #60 tablet 04/02/20 Colchicine 1 tab PO DAILY 06/27/20 Gabapentin [Neurontin*] 100 mg PO BID 06/27/20 Metolazone [Zaroxolyn] 10 mg PO DAILY 06/27/20 Polyethylene Glycol 3350 [Miralax] 17 gm PO BID 06/27/20 Valacyclovir [Valtrex*] 1,000 mg PO TID 06/27/20 Acyclovir [Zovirax] 1 appl TP DAILY #1 tube 06/28/20 - Past Medical/Surgical History Diabetic: Yes -: Prostate CA -: Afib -: HTN -: DM -: glaucoma -: kyphosis -: L. elbow sx - Social History Alcohol use: No CD- Drugs: No Caffeine use: No Physical Examination - Physical Exam General: Mild distress, Confused HEENT: Other (old shingle scars) Respiratory: Clear to auscultation bilaterally, Normal air movement Cardiovascular: Normal S1 S2, Other (bradycardic, + JVP), Edema, Irregular heart rate/rhythm Gastrointestinal: Normal bowel sounds, Soft and benign, Non-distended, No guarding Musculoskeletal: No clubbing, No contractures, No erythema, No tenderness, No warmth, Swelling Integumentary: No rashes, No breakdown, No significant lesion, No tenderness/swelling, No erythema, No warmth, No cyanosis Neurological: Dementia Urinary: Sherwood catheter - Studies Laboratory Data (last 24 hrs) 07/15/20 10:46: Phosphorus Cancelled 07/15/20 09:50: PT 20.6 H, INR 1.77 07/15/20 09:50: WBC 9.1, Hgb 10.7 L, Hct 31.1 L, Plt Count 271 07/15/20 09:50: Sodium 142, Potassium 2.3 L*, BUN 52 H, Creatinine 1.90 H, Glucose 112 H, Phosphorus 3.5, Magnesium 2.2, Total Bilirubin 1.0, AST 179 H, ALT 259 H, Alkaline Phosphatase 201 H, Lipase 29 L Assessment and Plan - Problems (Diagnosis) (1) Acute worsening of stage 4 chronic kidney disease Current Visit: No Status: Acute (2) Atrial fibrillation Onset Date: 10/10/17 Current Visit: No Status: Acute (3) CKD (chronic kidney disease) stage 4, GFR 15-29 ml/min Current Visit: No Status: Acute (4) DM2 (diabetes mellitus, type 2) Onset Date: 10/10/17 Current Visit: No Status: Acute (5) Dvt femoral (deep venous thrombosis) Current Visit: No Status: Acute (6) Elevated troponin Current Visit: No Status: Acute - Advance Directives Does patient have a Living Will: No Does patient have a Durable POA for Healthcare: No Physician Review Additional Text: Assessment Patient is a 89 year old male with hx of prostate cancer, CKD stage III, HTN, DVT, atrial fibrillation on eliquis who is currently admitted with shortness of breath. He has signs of volume overload as evidenced by bilateral lower extremity edema and JVD. However, with a negative chest x-ray, it's unlikley this is due to CHF exacerbation. Patient had a distended bladder that yielded 1600 of urine upon placement of sherwood catheter. This is most likely the explanation of his presentaiton. Acute respiratory distress Acute urinary retention Severe bradycardia Hypokalemia Transaminesemia CKD stage III - currenlty at baseline based on my conversation with Nephrology Atrial fibrillation DVT Prostate cancer PLAN: Admit with telemetry Potassium replacement Continue sherwood care Cardiology consulted for bradycardia Repeat BNP Abdo US for transaminesemia Resumed home dose of Norvasc Avoid beta blockers Resume home dose of eliquis Nephrology consulted
[2020-07-15] MEDS ORDERED: Ringers Lactate 1,000 ML IV SCH (14:06)
[2020-07-15] MEDS: NS KCL 20MEQ 20 MEQ/1,000 ML BAG IV SCH (16:00)
[2020-07-15 17:42] VITALS: BMI 27.7
--- NOTE | 2020-07-15 20:13 | CON ---
Date of Consultation: 07/15/2020 Requesting Provider: Prince Chris Reveles MD Reason For Consultation: Chronic kidney disease, urinary retention. History Of Present Illness: Mr. Bhardwaj is an 89-year-old male, who lives at home with underlying hist ory of dementia, who was brought into the hospital secondary to some difficulty breathing and altered mental status. A consultation was requested for renal insufficiency. Patient has a creatinine of 1 .9 on admission. The patient does follow Dr. Dalal in the outpatient setting and was found to have a creatinine in the 1.7-1.9 range of baseline. He is also found to be severely hypokalemic with a p otassium level of 2.3, also with BNP of 47,000, also with elevated liver enzymes. He is currently se en at bedside with the family. The patient's mentation is very poor. He is unable to complete many sentences secondary to appears to be an expressive aphasia, which is chronic according to the family. There is no recent NSAIDs or IV contrast administration noted. Of note, patient did have Henderson catheter inserted in the emergency room, immediately 1.6 L of bloody urine was noted. Patient also had recent DVT of the left lower extremity, for which he was on blood thinners. Also of note, the patient does have a history of prostate cancer, for which family states he has had no significant followup in the past 10 years. Past Medical History: Significant for atrial fibrillation, hypertension, diabetes, prostate CA, and recent DVT as noted. Family History: Noncontributory. Physical Examination: Vital Signs: Blood pressure is 158/77, pulse 52, afebrile. General: Cachectic. Chronic skin changes noted in the face secondary to shingles above the right ey e. Heart: Regular rate and rhythm. No murmurs, rubs, gallops. Distant heart sounds. Lungs: Poor inspiratory effort. Abdomen: Soft, nontender. Extremities: With 1+ edema at the bilateral lower extremities. Henderson catheter in place with deep red urine. Laboratory Data: Sodium 142, potassium 2.3, chloride 105, CO2 24, BUN 52, creatinine 1.9, glucose 11 2, calcium 8.2, base ALT of 179 and 259 respectively as well as an alkaline phosphatase of 201. Tota l bilirubin is 1. UA was noted with leukocyte esterase. Current Medications: Reviewed. Impression: 1.Acute kidney injury, on chronic kidney disease stage 3. 2.Obstructive nephropathy. 3.Gross hematuria. 4.Hypokalemia. 5.Elevated liver enzymes. 6.Lactic acidosis. Plan: The patient's renal function relatively stable. At this point, more concerning is hypokalemia , which likely contributed to the patient's high dose of metolazone. Metolazone has been held and beata connell was started on IV fluids with normal saline and 20 KCl for the time being. Patient's p.o. inta ke is very poor. Patient also has gross hematuria. I have asked primary team to consult Urology as the patient was on blood thinners. Blood thinner should be held. Patient also has elevated liver enzymes, so lactated Ringer's has been discontinued. This can contri bute to lactic acidosis with hepatic insufficiency. I have also asked for repeat Dopplers of the bilateral lower extremities. Goals of care should be aggressively discussed with the family. Patient has very poor quality of lif e and aggressive management would be of little benefit given his overall situation. SE/MODL Voice ID: [id number] Report ID: [id number]
[2020-07-15] MEDS: APIXABAN 5 MG TABLET PO SCH ×2 (20:27→20:55)
[2020-07-15] MEDS: POLYETHYL GLY 3350 17 GM/DOSE PO SCH (20:28)
--- NOTE | 2020-07-15 21:07 | RAD REPORT ---
EXAM DESCRIPTION: USExtrem Venous W Compress Bil07/15/2020 8:34 pm CLINICAL HISTORY: Leg swelling COMPARISON: Left leg ultrasound June 2020 FINDINGS: The left common femoral, superficial femoral, popliteal and posterior tibial veins are com pressible and demonstrate augmentation. Doppler demonstrates good flow. Echogenic material consistent with acute thrombus is present within the right common femoral and righ t popliteal veins. Right superficial femoral and right posterior tibial veins are patent IMPRESSION: Acute thrombus right common femoral and right popliteal veins Patient's nurse Martha was notified 9:02 p.m. on July 15, 2020
[2020-07-15 21:24] LABS: Potassium 2.8 mmol/L (3.5-5.1)
[2020-07-15] MEDS: KCL 20 MEQ/100 mL IVPB 20 MEQ/100 ML BAG IV SCH (22:24)
[2020-07-16] MEDS: KCL 20 MEQ/100 mL IVPB 20 MEQ/100 ML BAG IV SCH
[2020-07-16] MEDS: NS KCL 20MEQ 20 MEQ/1,000 ML BAG IV SCH (04:22)
[2020-07-16 05:56] LABS: Absolute Lymphocytes (CBC) 1.3 K/uL (0.7-4.9); Basophils % 0.1 % (0-1.3); Hematocrit 31.9 % (39.6-49.0); Lymphocytes % 11.9 % (15.3-44.8); MPV 7.7 fL (7.6-11.3); RBC Red Blood Cell Count 3.33 M/uL (4.33-5.43)
[2020-07-16 06:57] LABS: Platelet Estimate ADEQ
[2020-07-16 06:58] LABS: Anisocytosis 1+; Blood Morphology Comment NOTED (NOT SEEN); Macrocytosis SLIGHT; Polychromasia 1+
[2020-07-16] MEDS ORDERED: POTASSIUM CL SA 10 MEQ TAB PO ONE (06:58)
[2020-07-16] MEDS ORDERED: POTASSIUM CL 40 MEQ in NA CHLORIDE 0.9% 500 ML IV SCH (07:00)
[2020-07-16 07:47] LABS: Albumin 2.4 g/dL (3.4-5.0); Bilirubin Total 0.8 mg/dL (0.2-1.0); Potassium 3.4 mmol/L (3.5-5.1); Protein, Total 6.5 g/dL (6.4-8.2)
[2020-07-16] MEDS ORDERED: NA CHLORIDE 0.9% 500 ML IV ONE (08:00)
[2020-07-16] MEDS ORDERED: AMLODIPINE 5 MG TAB PO SCH (09:00)
[2020-07-16] MEDS ORDERED: COLCHICINE 0.6 MG TAB PO SCH (09:00)
[2020-07-16] MEDS: APIXABAN 5 MG TABLET PO SCH ×2 (09:02→21:16)
[2020-07-16] MEDS: AMLODIPINE 5 MG TAB PO SCH (09:03)
[2020-07-16] MEDS: COLCHICINE 0.6 MG TAB PO SCH (09:03)
[2020-07-16] MEDS: POLYETHYL GLY 3350 17 GM/DOSE PO SCH ×2 (09:04→21:00)
--- NOTE | 2020-07-16 09:04 | RAD REPORT ---
EXAM DESCRIPTION: Tanya Single View07/16/2020 6:43 am CLINICAL HISTORY: Shortness of breath COMPARISON: July 15, 2020 FINDINGS: [id number] right and mild left pulmonary opacities are present. Calcified granulomas are present the lungs. Small bilateral pleural effusions The heart is mildly to moderately enlarged IMPRESSION: [id number] bilateral pulmonary opacities may represent pulmonary edema or pneumoni a Small pleural effusions
--- NOTE | 2020-07-16 09:35 | P.PN ---
Subjective Date of Service: 07/16/20 Chief Complaint: Shortness of breath Subjective: No new changes, Improving (Patient had a good night. Off oxygen. Not dyspneic) Physical Examination - Vital Signs Temperature: 97.0 F Blood Pressure: 127/84 Pulse: 50 Respirations: 17 Pulse Ox (%): 100 - Physical Exam General: In no apparent distress, Cooperative, Other (lethargic) HEENT: Atraumatic, Normocephalic, Other (R facial shingles rash), EOMI Neck: Supple Respiratory: Clear to auscultation bilaterally, Normal air movement Cardiovascular: Regular rate/rhythm, Normal S1 S2, Other, Edema Gastrointestinal: Normal bowel sounds, Soft and benign, Non-distended, No tenderness Musculoskeletal: No clubbing, No contractures, No erythema, No tenderness, No warmth, Swelling Integumentary: No rashes, No breakdown, No significant lesion, No tenderness/swelling, No erythema, No warmth, No cyanosis Neurological: Dementia - Studies Laboratory Data (last 24 hrs) 07/15/20 10:46: Phosphorus Cancelled 07/15/20 09:50: PT 20.6 H, INR 1.77 07/15/20 09:50: WBC 9.1, Hgb 10.7 L, Hct 31.1 L, Plt Count 271 07/15/20 09:50: Sodium 142, Potassium 2.3 L*, BUN 52 H, Creatinine 1.90 H, Glucose 112 H, Phosphorus 3.5, Magnesium 2.2, Total Bilirubin 1.0, AST 179 H, ALT 259 H, Alkaline Phosphatase 201 H, Lipase 29 L Assessment & Plan - Problems (Diagnosis) (1) Acute worsening of stage 4 chronic kidney disease Current Visit: No Status: Acute (2) Atrial fibrillation Onset Date: 10/10/17 Current Visit: No Status: Acute (3) CKD (chronic kidney disease) stage 4, GFR 15-29 ml/min Current Visit: No Status: Acute (4) DM2 (diabetes mellitus, type 2) Onset Date: 10/10/17 Current Visit: No Status: Acute (5) Dvt femoral (deep venous thrombosis) Current Visit: No Status: Acute (6) Elevated troponin Current Visit: No Status: Acute Physician Review Additional Text: Assessment Patient is a 89 year old male with hx of prostate cancer, CKD stage III, HTN, DVT, atrial fibrillation on eliquis who is currently admitted with shortness of breath. He has signs of volume overload as evidenced by bilateral lower extremity edema and JVD. However, with a negative chest x-ray, it's unlikley this is due to CHF exacerbation. He was found to have obstructive uropathy with Uo of 1600 upon placement of sherwood catheter. Zosyn started on 07/16/2020 due to concern of severe sepsis. UTI is the most likely source with 4+ beta hemolytic strep in the preliminary report. Severe sepsis Transaminesemia Lactic acidosis Acute urinary retention UTI Acute DVT of R common femoral and R popliteal vein Severe bradycardia - resolved Hypokalemia CKD stage III - currently at baseline based on my conversation with Nephrology Atrial fibrillation DVT Prostate cancer PLAN: Continue telemetry Started on zosyn Trend lactic acid and TX if indicated Follow up blood and urine cultures Continue eliquis for DVT Potassium replacement Continue sherwood care, s/p bladder irrigation Follow up abdo US for transaminesemia Resumed home dose of Norvasc Avoid beta blockers Resume home dose of eliquis Nephrology consulted
[2020-07-16] MEDS ORDERED: FUROSEMIDE 40 MG/4 ML VIAL IV ONE (10:24)
[2020-07-16 14:01] LABS: Arterial Blood Carboxyhemoglob 1.8 % (0-1.5); Blood Gas Oxyhemoglobin 93.9 % (94-97); Blood O2 Saturation 96.8 % (92-98.5)
[2020-07-16] MEDS: PIPER/TAZO/NS 3.375gm 3.375 GM/100 ML BAG IVPB SCH (17:16)
[2020-07-17] MEDS: PIPER/TAZO/NS 3.375gm 3.375 GM/100 ML BAG IVPB SCH ×3 (01:16→18:12)
[2020-07-17 04:29] LABS: Absolute Lymphocytes (CBC) 1.4 K/uL (0.7-4.9); Basophils % 0.2 % (0-1.3); Hematocrit 29.2 % (39.6-49.0); Lymphocytes % 13.8 % (15.3-44.8); MPV 7.7 fL (7.6-11.3); RBC Red Blood Cell Count 2.99 M/uL (4.33-5.43)
--- NOTE | 2020-07-17 07:47 | EKG ---
Test Date: 2020-07-15 Test Time: 09:51:59 Surgical Aide: CHETAN MEASUREMENT RESULTS: Intervals: Rate: 64 [place]: QRSD: 150 QT: 502 QTc: 517 [place]: P: [place]: QRS: 130 T: -65 INTERPRETIVE STATEMENTS: Undetermined rhythm Right bundle branch block Possible Lateral infarct, age undetermined T wave abnormality, consider inferior ischemia Abnormal ECG Compared to ECG 06/27/2020 14:11:17 Right bundle-branch block now present Myocardial infarct finding now present T-wave abnormality now present Possible ischemia now present Left bundle-branch block no longer present Electronically Signed On 07-17-20 07:43:25 CDT by Sergo Ronquillo
--- NOTE | 2020-07-17 08:24 | P.PN ---
Subjective Date of Service: 07/17/20 Chief Complaint: Shortness of breath Subjective: Improving (Patient is now on room air. His alertness is still concerning. I discussed with regarding hospice conversation. She states she will discuss with the rest of the family about this topic.) Physical Examination - Vital Signs Temperature: 97.7 F Blood Pressure: 130/70 Pulse: 40 Respirations: 18 Pulse Ox (%): 100 - Physical Exam General: Confused, Other (somnolent) HEENT: Atraumatic, Normocephalic, EOMI Neck: Supple Respiratory: Clear to auscultation bilaterally, Normal air movement Cardiovascular: Regular rate/rhythm, Normal S1 S2, Other (bradycardic) Gastrointestinal: Normal bowel sounds, Soft and benign, Non-distended, No tenderness Musculoskeletal: No clubbing, No swelling, No contractures, No erythema, No tenderness, No warmth Integumentary: Pressure ulcer Neurological: Dementia Urinary: Sherwood catheter Assessment & Plan - Problems (Diagnosis) (1) Acute worsening of stage 4 chronic kidney disease Current Visit: No Status: Acute (2) Atrial fibrillation Onset Date: 10/10/17 Current Visit: No Status: Acute (3) CKD (chronic kidney disease) stage 4, GFR 15-29 ml/min Current Visit: No Status: Acute (4) DM2 (diabetes mellitus, type 2) Onset Date: 10/10/17 Current Visit: No Status: Acute (5) Dvt femoral (deep venous thrombosis) Current Visit: No Status: Acute (6) Elevated troponin Current Visit: No Status: Acute Physician Review Additional Text: Assessment Patient is a 89 year old male with hx of prostate cancer, CKD stage III, HTN, DVT, atrial fibrillation on apixaban who is currently admitted with shortness of breath. His initial CXR ruled out pulmonary edema. Work up showed showed severe sepsis. His Ucx showed 4+ beta hemolytic strep. He was started on IVF on admission but it was later discontinued due to development of pulmonary edema. Addition issues encountered include obstructive uropathy. Placement of sherwood catheter on admission yielded 1600 of urine. He later developed gross hematuria, which was eventually controlled with bladder irrigation. He is also somnolent. Severe sepsis Metabolic encephalopathy Transaminesemia Lactic acidosis Acute urinary retention UTI Acute DVT of R common femoral and R popliteal vein Severe bradycardia - resolved Hypokalemia CKD stage III - currently at baseline based on my conversation with Nephrology Atrial fibrillation DVT Prostate cancer PLAN: CT head due to persistent somnolence Family to discuss goals of care today and update primary care Follow up final urine and blood cultures Continue zosyn - day 2 Continue eliquis for DVT Follow up CMP Follow up abdominal US for high LFTs Continue sherwood care, s/p bladder irrigation Continue Norvasc Avoid beta blockers due to bradycardia
--- NOTE | 2020-07-17 09:10 | RAD REPORT ---
EXAM DESCRIPTION: US - Abdomen Exam Complete - 07/17/2020 8:51 am CLINICAL HISTORY: Abdominal pain/sepsis COMPARISON: April 2020 cat scan FINDINGS: The liver has a normal echotexture Small gallstones. Gallbladder wall is not thickened. The biliary tree is normal caliber Limited evaluation of pancreas, IVC and abdominal aorta secondary to overlying bowel gas The right kidney measures 9 centimeters with a normal echotexture. The left kidney measures 9 centimeters with a normal echotexture. The spleen measures 8 centimeters. The abdominal aorta and inferior vena cava appear unremarkable IMPRESSION: Cholelithiasis without evidence cholecystitis
--- NOTE | 2020-07-17 09:39 | CON ---
Date of Consultation: 07/16/2020 Reason For Consultation: Bradycardia and congestive heart failure. History Of Present Illness: Mr. Bhardwaj is an 89-year-old black male. He is known to me from previous hospital admissions. He has chronic atrial fibrillation, diabetes, hypertension, came in with short ness of breath, was noted to be in congestive heart failure. He also was noted to have significant h ematuria. He normally sees a nurse practitioner at another group. He was also noted to have an acut e DVT in the right common femoral vein and popliteal vein, although patient is taking Eliquis at home . Last echocardiogram we had on him in 2018, actually was normal. He denied any chest pain, palpita tion, or syncope. Bradycardia was noted on admission with a heart rate of 44. Denied any fever or c hills or cough. Mr. Bhardwaj is a do not resuscitate patient. Past Medical History: As stated above. Allergies: NONE. Review of Systems: Negative. Social History: Negative. Family History: Noncontributory. Medications: At home include Norvasc, colchicine, Eliquis, as well as metolazone daily. Physical Examination: General: Mr. Bhardwaj was very somnolent. He will wake up to name and go back to sleep. Vital Signs: Stable. He was in atrial fibrillation when I saw him at a rate of 65. He was afebrile . HEENT: Negative. Neck: Supple. No bruit, lymphadenopathy, JVD, or thyromegaly. Chest: Clear to auscultation and percussion. Cardiac: Revealed atrial fibrillation with an aortic sclerosis murmur. No gallops or rubs. Abdomen: Benign. Extremities: Revealed no clubbing, cyanosis. He did have 1+ edema. Diagnostic Data: His chest x-ray showed CHF. Venous Doppler showed acute right common femoral vein and popliteal vein thrombus. Creatinine is 1.9, potassium of 3.3, his troponin was 0.47. BNP was 47 ,523. His AST was 179, ALT was 359. Impression And Plan: 1.Acute diastolic congestive heart failure most likely. 2.Chronic atrial fibrillation. 3.Renal failure. 4.Hypokalemia. 5.Elevated liver function test secondary to congestive heart failure. 6.Elevated troponin secondary to congestive heart failure. 7.Acute deep vein thrombosis. 8.Do not resuscitate status. 9.Diabetes. 10.Hypertension. I agree with diuresis. I agree with Renal consultation. Echocardiogram is pending. Eliquis therapy should be discussed and may be better to be switched to Xarelto since he has developed a DVT on Eliq uis. I think rehabilitation and social work consultation should be addressed as well. Potassium nee ds to be corrected. His metolazone should be held. We will continue to follow him along. ANUSHKA/MARIELA Voice ID: [id number] Report ID: [id number]
--- NOTE | 2020-07-17 09:57 | RAD REPORT ---
EXAM DESCRIPTION: CT - Head C Spine Mpr Wo Con - 07/17/2020 9:41 am CLINICAL HISTORY: Alteration of consciousness/confusion/prostate cancer COMPARISON: None. TECHNIQUE: Computed axial tomography of the head and cervical spine was obtained. Sagittal and coronal reconstruction was performed. All CT scans are performed using dose optimization technique as appropriate and may include automated exposure control or mA/KV adjustment according to patient size. FINDINGS: Moderate to marked low-density areas within periventricular, deep and subcortical white ma tter likely ischemic changes secondary to small vessel disease. An intracranial bleed is not seen. The ventricles are normal in caliber. An extra-axial fluid collect ion is not noted. Mild sphenoid sinusitis A cervical fracture is not visualized. No dislocation is noted. . Spondylosis involves the cervical s pine Small pleural effusions IMPRESSION: No acute intracranial abnormality is seen. A cervical fracture is not visualized. If the patient continues to have symptoms to suggest intracra nial /spinal cord pathology then MRI would be recommended
[2020-07-17] MEDS: AMLODIPINE 5 MG TAB PO SCH (10:14)
[2020-07-17] MEDS: COLCHICINE 0.6 MG TAB PO SCH (10:14)
[2020-07-17] MEDS: POLYETHYL GLY 3350 17 GM/DOSE PO SCH ×2 (10:15→21:00)
[2020-07-17] MEDS: APIXABAN 5 MG TABLET PO SCH ×2 (10:21→21:12)
[2020-07-17 12:44] LABS: Albumin 2.4 g/dL (3.4-5.0); Bilirubin Total 0.5 mg/dL (0.2-1.0); Protein, Total 6.3 g/dL (6.4-8.2)
[2020-07-17 12:47] LABS: Potassium 2.9 mmol/L (3.5-5.1)
[2020-07-17] MEDS ORDERED: POTASSIUM CL SA 10 MEQ TAB PO ONE (12:51)
[2020-07-17] MEDS ORDERED: POTASSIUM CL 40 MEQ in NA CHLORIDE 0.9% 500 ML IV ONE (13:30)
[2020-07-17] MEDS ORDERED: NA CHLORIDE 0.9% 250 ML ONE (14:02)
--- NOTE | 2020-07-17 22:19 | P.PN ---
Date of Service: 07/17/20 Vital Signs Temp Pulse Resp BP Pulse Ox 97.3 F 51 16 137/75 94 07/17/20 20:00 07/17/20 20:00 07/17/20 20:00 07/17/20 20:00 07/17/20 20:00 Medications Amlodipine Besylate (Norvasc) 5 mg PO DAILY [facility] Stop: 08/15/20 09:01 Last Admin: 07/17/20 10:14 Dose: 5 mg Documented by: Apixaban (Eliquis) 5 mg PO BID [facility] Stop: 08/14/20 21:01 Last Admin: 07/17/20 21:12 Dose: 5 mg Documented by: Colchicine (Colcrys) 0.6 mg PO DAILY [facility] Stop: 08/15/20 09:01 Last Admin: 07/17/20 10:14 Dose: 0.6 mg Documented by: Piperacillin Sod/Tazobactam Sod (Zosyn 3.375 Gm/100 Ml Ns Ivpb) 3.375 gm in 100 mls @ 25 mls/hr IVPB Q8HR [facility]; Protocol Stop: 08/15/20 17:01 Last Admin: 07/17/20 18:12 Dose: 100 mls Documented by: Polyethylene Glycol (Glycolax) 17 gm PO BID [facility] Stop: 08/14/20 21:01 Last Admin: 07/17/20 21:00 Dose: Not Given Documented by: Microbiology Results 07/15/20 10:00 Catheterized Urine [place] Count - Preliminary >100,000 CFU/ML. 07/15/20 10:00 Catheterized Urine - Final Enterococcus Faecalis 07/15/20 10:00 Blood - Blood Aerobic Blood Culture - Preliminary No growth in 24 hours. 07/15/20 10:00 Blood - Blood Anaerobic Blood Culture - Preliminary No growth in 24 hours. 07/15/20 10:09 Blood - Blood Aerobic Blood Culture - Preliminary No growth in 24 hours. 07/15/20 10:09 Blood - Blood Anaerobic Blood Culture - Preliminary No growth in 24 hours. Assessment/ Plan: Nephrology CPS stable without CP or SOB. No acute events overnight. Limited IH/ ROS due to dementia. Vitals, medications, blood work and imaging reviewed in the chart. NAD. MMM. Neck supple. CTA. RRR. Soft Abd. No C/C. LE Edema 1-2+. No rash. AA. Normal Speech. A/ CKD III Hypernatemia Hypokalemia Urinary obstruction HTN with CKD Moderate malnutrition Anemia in chronic illness Acute hepatitis Acute cystitis. Hx prostate cancer. P/ Continue current POC and Medications. Replete potassium. Start Amiloride. Start Vitamin D. Continue sherwood due to obstruction. Continue abx. Consider H/O evaluation for anticoagulation. Encourage nutrition. AM labs. Daily weight. No NSAIDs.
[2020-07-17 22:58] VITALS: O2SAT 94
[2020-07-18] MEDS ORDERED: KCL 20 MEQ/100 mL IVPB 20 MEQ/100 ML BAG IV SCH (01:00)
[2020-07-18] MEDS: PIPER/TAZO/NS 3.375gm 3.375 GM/100 ML BAG IVPB SCH ×2 (01:17→08:31)
[2020-07-18] MEDS ORDERED: NA CHLORIDE 0.9% 250 ML ONE (01:43)
[2020-07-18 05:39] LABS: Hematocrit 30.1 % (39.6-49.0); Lymphocytes % 16.4 % (15.3-44.8); MPV 7.8 fL (7.6-11.3); RBC Red Blood Cell Count 3.04 M/uL (4.33-5.43)
[2020-07-18 05:40] LABS: Absolute Lymphocytes (CBC) 1.6 K/uL (0.7-4.9); Basophils % 0.5 % (0-1.3)
[2020-07-18 05:42] LABS: Magnesium 1.8 mg/dL (1.8-2.4); Phosphorus 3.1 mg/dL (2.5-4.9)
[2020-07-18 07:03] LABS: Albumin 2.4 g/dL (3.4-5.0); Bilirubin Total 0.6 mg/dL (0.2-1.0); Potassium 4.4 mmol/L (3.5-5.1); Protein, Total 5.9 g/dL (6.4-8.2)
[2020-07-18 07:19] LABS: Anisocytosis 1+; Blood Morphology Comment NOTED (NOT SEEN); Macrocytosis 1+; Platelet Estimate ADEQ; Polychromasia SLIGHT
--- NOTE | 2020-07-18 08:05 | P.PN ---
Date of Service: 07/18/20 Vital Signs Temp Pulse Resp BP Pulse Ox 97.2 F 61 16 128/68 96 07/18/20 08:00 07/18/20 08:00 07/18/20 08:00 07/18/20 08:00 07/18/20 08:00 Medications Amiloride HCl (Midamor) 10 mg PO BID [facility] Stop: 08/17/20 09:01 Amlodipine Besylate (Norvasc) 5 mg PO DAILY [facility] Stop: 08/15/20 09:01 Apixaban (Eliquis) 5 mg PO BID [facility] Stop: 08/14/20 21:01 Last Admin: 07/17/20 21:12 Dose: 5 mg Documented by: Calcitriol (Rocaltrol) 0.5 mcg PO DAILY [facility] Stop: 08/17/20 09:01 Cholecalciferol (Vitamin D 5,000 Iu Cap) 5,000 unit PO DAILY [facility] Stop: 08/17/20 09:01 Colchicine (Colcrys) 0.6 mg PO DAILY [facility] Stop: 08/15/20 09:01 Last Admin: 07/17/20 10:14 Dose: 0.6 mg Documented by: Docusate Sodium (Colace Cap) 100 mg PO BID [facility] Stop: 08/17/20 09:01 Piperacillin Sod/Tazobactam Sod (Zosyn 3.375 Gm/100 Ml Ns Ivpb) 3.375 gm in 100 mls @ 25 mls/hr IVPB Q8HR [facility]; Protocol Stop: 08/15/20 17:01 Last Admin: 07/18/20 01:17 Dose: 100 mls Documented by: Metolazone (Zaroxolyn) 10 mg PO 1X [facility] Stop: 08/17/20 09:01 Polyethylene Glycol (Glycolax) 17 gm PO BID [facility] Stop: 08/14/20 21:01 Last Admin: 07/17/20 21:00 Dose: Not Given Documented by: Microbiology Results 07/15/20 10:00 Catheterized Urine [place] Count - Final >100,000 CFU/ML. 07/15/20 10:00 Catheterized Urine - Final Enterococcus Faecalis 07/15/20 10:00 Blood - Blood Aerobic Blood Culture - Preliminary No growth in 24 hours. 07/15/20 10:00 Blood - Blood Anaerobic Blood Culture - Preliminary No growth in 24 hours. 07/15/20 10:09 Blood - Blood Aerobic Blood Culture - Preliminary No growth in 24 hours. 07/15/20 10:09 Blood - Blood Anaerobic Blood Culture - Preliminary No growth in 24 hours. Assessment/ Plan: Nephrology CPS stable without CP or SOB. No acute events overnight. Limited IH/ ROS due to dementia. Case reviewed with his . Vitals, medications, blood work and imaging reviewed in the chart. NAD. MMM. Neck supple. CTA. RRR. Soft Abd. No C/C. LE Edema 1-2+. No rash. AA. Normal Speech. Sherwood with hematuria. A/ CKD III Hypernatemia Hypokalemia Urinary obstruction HTN with CKD Moderate malnutrition Anemia in chronic illness Acute hepatitis Acute cystitis. Hx prostate cancer. P/ Continue current POC and Medications. Give Metolazone X1. Continue Amiloride. Continue sherwood due to obstruction. Continue abx. Consider H/O evaluation for anticoagulation. Encourage nutrition. AM labs. Daily weight. No NSAIDs. Case reviewed with Dr. Tan.
[2020-07-18] MEDS: COLCHICINE 0.6 MG TAB PO SCH (08:29)
[2020-07-18] MEDS: APIXABAN 5 MG TABLET PO SCH (08:30)
[2020-07-18] MEDS: POLYETHYL GLY 3350 17 GM/DOSE PO SCH ×2 (08:32→09:00)
[2020-07-18] MEDS ORDERED: DOCUSATE NA 100 MG CAP PO SCH (09:00)
[2020-07-18] MEDS ORDERED: AMILORIDE HCL 5 MG TABLET PO SCH (09:00)
[2020-07-18] MEDS ORDERED: CALCITROL 0.25 MCG CAP PO SCH (09:00)
[2020-07-18] MEDS ORDERED: VITAMIN D 5,000 UNIT CAP PO SCH (09:00)
[2020-07-18] MEDS ORDERED: AMLODIPINE 5 MG TAB PO SCH (09:00)
[2020-07-18] MEDS ORDERED: METOLAZONE 5 MG TABLET PO SCH (09:00)
--- NOTE | 2020-07-18 09:00 | ECHO ---
HEIGHT: 6 ft 2 in WEIGHT: 216 lb 0 oz DATE OF STUDY: 07/17/[address]: Prince Michael Reveles MD 2-DIMENSIONAL: YES M.MODE: YES DOPPLER: YES COLOR FLOW: YES TDS: PORTABLE: DEFINITY: BUBBLE STUDY: DIAGNOSIS: RAPID ATRIAL FIBRILLATION CARDIAC HISTORY: CATHERIZATION: NO SURGERY: NO PROSTHETIC VALVE: NO PACEMAKER: NO MEASUREMENTS (cm) DIASTOLIC (NORMALS) SYSTOLIC (NORMALS) IVSd 1.5 (0.6-1.2) LA Diam 3.2 (1.9-4.0) LVEF 27% LVIDd 4.8 (3.5-5.7) LVIDs 4.2 (2.0-3.5) %FS 13% LVPWd 1.4 (0.6-1.2) Ao Diam 3.5 (2.0-3.7) 2 DIMENSIONAL ASSESSMENT: RIGHT ATRIUM: ENLARGED LEFT ATRIUM: NORMAL RIGHT VENTRICLE: NORMAL LEFT VENTRICLE: MILDLY DEPRESSED TRICUSPID VALVE: MILD TO MODERATE TRICUSPID REGURGITATION MITRAL VALVE: SEVERE MITRAL REGURGITATION PULMONIC VALVE: MODERATE PULMONARY INSUFFICENCY AORTIC VALVE: MILD AORTIC INSUFFICIENCY PERICARDIAL EFFUSION: NONE AORTIC ROOT: NORMAL LEFT VENTRICULAR WALL MOTION: MILD GLOBAL HYPOKINESIS DOPPLER/COLOR FLOW: SEE BELOW COMMENTS: MILDLY DEPRESSED LEFT VENTRICULAR EJECTION FRACTION 45-50% WITH MILD GLOBAL HYPOKINESIS. MILD TO MODERATE TRICUSPID REGURGITATION, MODERATE PULMONARY INSUFFICIENCY, MILD AORTIC INSUFFICIENCY. MODERATE TO SEVERE MITRAL REGURGITATION. PULMONARY HYPERTENSION WITH RIGHT VENTRICULAR SYSTOLIC PRESSURE OF 50 mmHg AND RIGHT ATRIAL PRESSURE. TECHNOLOGIST: MARY KAY MORALES
--- NOTE | 2020-07-18 13:25 | P.PN ---
Subjective Date of Service: 07/18/20 Chief Complaint: Shortness of breath Subjective: Improving (more awake/alert this morning, able to eat eggs this morning ( feeding him). Oriented to self only. Reports no pain, no complaints) Physical Examination - Vital Signs Temperature: 97.2 F Blood Pressure: 139/73 Pulse: 44 Respirations: 14 Pulse Ox (%): 98 - Physical Exam General: In no apparent distress, Oriented x1 Neck: JVD not distended Respiratory: Clear to auscultation bilaterally Cardiovascular: No edema, Regular rate/rhythm (occasional bradycardia (50s)) Gastrointestinal: Soft and benign, Non-distended, No tenderness Musculoskeletal: No tenderness Integumentary: Other (healed shingles scars on R face) Neurological: Other (confused, mumbling words), Dementia Urinary: Sherwood catheter (bloody urine in bag, clear urine in tube) - Studies Microbiology Data (last 24 hrs): 07/15/20 10:00 Catheterized Urine [place] Count - Final >100,000 CFU/ML. 07/15/20 10:00 Catheterized Urine - Final Enterococcus Faecalis Assessment & Plan Physician Review Additional Text: Assessment Patient is a 89 year old male with hx of prostate cancer, CKD stage III, HTN, DVT, atrial fibrillation on apixaban who is currently admitted with shortness of breath. His initial CXR ruled out pulmonary edema. Work up showed showed severe sepsis. His Ucx showed 4+ beta hemolytic strep. He was started on IVF on admission but it was later discontinued due to development of pulmonary edema. Addition issues encountered include obstructive uropathy. Placement of sherwood catheter on admission yielded 1600 of urine. He later developed gross hematuria, which was eventually controlled with bladder irrigation. Severe sepsis Metabolic encephalopathy Transaminesemia Lactic acidosis Acute urinary retention UTI Acute DVT of R common femoral and R popliteal vein Severe bradycardia - resolved Hypokalemia CKD stage III - currently at baseline based on my conversation with Nephrology Atrial fibrillation DVT Prostate cancer PLAN: CT head due to persistent somnolence, negative for acute process Ur Cx: E faecalis, sensitivities reviewed, will switch to PO Amoxicillin from Zosyn (day 3) Had long discussion with family this morning - they would like to pursue home hospice - pt has not been doing well since hospitalization in March, "never bounced back", continues with worsening dementia/confusion per family. They also report he made them promise never to send him to a group home pt more awake this morning, improving, able to actually eat today, but remains confused, not completely coherent at times sherwood catheter with hematuria again, apparently had traumatic insertion initially, resolved, but now with blood again. Likely due to continued Eliquis will discuss goals of care with family again, might discontinue Eliquis - especially if pursuing hospice TTE (07/18/20): LVEF: 45-50%, mild global hypokinesis, mild-mod TR, mod pulm insufficiency, mild AI, mod-severe MR, Pulm HTN, RVSP: 50mmHg LFTs mildly improved Continue Norvasc, Avoid beta blockers due to bradycardia Dispo: pending hospice evaluation Time Spent Managing Pts Care (In Minutes): 40
[2020-07-18] MEDS ORDERED: AMOXICILLIN TRIHYDR 250 MG CAP PO SCH (14:00)
[2020-07-18 16:47] VITALS: BP 157/85; TEMP 97.1
--- NOTE | 2020-07-18 17:43 | P.DS ---
Admission Date: 07/15/20 Discharge Date: 07/18/20 Disposition: HOSPICE-HOME Discharge Condition: FAIR Reason for Admission: Shortness of breath Consultations: Cardiology - Dr. Ronquillo Nephrology - Dr. Dalal Procedures: Right leg deep venous ultrasound (07/15/2020): Acute thrombus right common femoral and right popliteal veins CXR (07/15): No diffuse pulmonary edema or significant lung parenchymal proce ss. Focal increased density in the mid right lung field is favored to be summation artifact. Heart size vasculature prominent. CXR (07/16): Mild to moderate bilateral pulmonary opacities may represent pulmonary edema or pneumonia. Small pleural effusions. CT head/C-spine (07/17): No acute intracranial abnormalities seen. Cervical fracture is not visualized. 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 He presents to the ER accompanied by at an acute onset of shortness of breath which started the day before presentation. History obtained from . Patient is not very coherent. He was found to have b/l lower extremity swelling and recent h/o orthopnea. He arrived in the ER hemodynamically severely bradycardic and hypokalemia. A Sherwood catheter was inserted and yielded 1600 ml of urine. Hospital Course: Patient was initially admitted and treated for potential CHF exacerbation, however after further workup patient was found to have a urinary tract infection. Cardiology was consulted and and an echocardiogram was performed. Mild global hypokinesis, mildly depressed EF (45-50%), mild-moderate TR, moderate pulmonary insufficiency, mild AI, moderate-severe MR, pulmonary hypertension with RVSP of 50mmHg. Nephrology was consulted for elevated creatinine and severe hypokalemia with a potassium of 2.3, and BNP of 47,000. The patient also developed hematuria due to traumatic sherwood insertion. The hematuria initially cleared up but began again overnight. A long conversation was had with the family, and due to his continued altered mental status, confusion, and ongoing medical issues since March, the family ultimately decided to pursue home hospice. On day of discharge I had a conversation with the family regarding his ongoing hematuria. After explaining the risks vs benefits, we came to a decision of holding the patient's Eliquis until the hematuria cleared up. Home hospice to consider restarting once hematuria resolved. He will be discharged with sherwood catheter. Patient will be discharged on amiloride and metolazone per nephrology's recommendations. For his UTI, Urine culture grew enterococcus faecalis, sensitivities were reviewed and he was discharged with 5 days of Amoxicillin. Vital Signs/Physical Exam: Temp Pulse Resp BP Pulse Ox 97.1 F 47 L 15 157/85 H 97 07/18/20 16:00 07/18/20 16:00 07/18/20 16:00 07/18/20 16:00 07/18/20 16:00 General: In no apparent distress, Oriented x1, Confused HEENT: Mucous membr. moist/pink Neck: JVD not distended Respiratory: Diminished (at bases bilaterally) Cardiovascular: Edema (1-2+ bilaterally to knees) Gastrointestinal: Soft and benign, Non-distended, No tenderness Musculoskeletal: No erythema, No tenderness Integumentary: No rashes Neurological: Dementia Laboratory Data at Discharge: WBC 9.7 K/uL (4.3-10.9) 07/18/20 05:22 Hgb 10.1 g/dL (13.6-17.9) L 07/18/20 05:22 Hct 30.1 % (39.6-49.0) L 07/18/20 05:22 Plt Count 216 K/uL (152-406) 07/18/20 05:22 PT 20.6 SECONDS (9.5-12.5) H 07/15/20 09:50 INR 1.77 07/15/20 09:50 Sodium Cancelled 07/18/20 11:30 Potassium Cancelled 07/18/20 11:30 BUN Cancelled 07/18/20 11:30 Creatinine Cancelled 07/18/20 11:30 Glucose Cancelled 07/18/20 11:30 Phosphorus 3.1 mg/dL (2.5-4.9) 07/18/20 05:22 Magnesium 1.8 mg/dL (1.8-2.4) 07/18/20 05:22 Magnesium Cancelled 07/18/20 05:22 Total Bilirubin Cancelled 07/18/20 11:30 AST Cancelled 07/18/20 11:30 ALT Cancelled 07/18/20 11:30 Alkaline Phosphatase Cancelled 07/18/20 11:30 Lipase 29 U/L (73-393) L 07/15/20 09:50 Home Medications: Amlodipine Besylate [Norvasc] 5 mg PO DAILY #30 tablet 04/02/20 Colchicine 1 tab PO BID 06/27/20 Metolazone [Zaroxolyn] 10 mg PO DAILY 06/27/20 Amiloride HCl 2 tab PO DAILY 30 Days #60 tablet 07/18/20 Amoxicillin 500 mg PO TID 5 Days #15 capsule 07/18/20 New Medications: Amiloride HCl 2 tab PO DAILY 30 Days #60 tablet Amoxicillin 500 mg PO TID 5 Days #15 capsule Patient Discharge Instructions: Discharged to home hospice. Continue Sherwood catheter. Discontinue eliquis while having blood in urine. Can reconsider restarting once bleeding has stopped. Monitor fluid status, if only taking minimal PO, consider decreasing/ discontinuing metolazone/amiloride. Diet: soft diet Activity: Bedrest Time spent managing pt's care (in minutes): 40
== END 2020-07-18 17:14 | disposition hospice, home (50) | DRG 871 ==
LOC: ER 09:36 → ERHOLD 11:44 → 2ND 13:30
PROVIDERS: ADMIT Internal Medicine; ATTEND Hospitalist
DX: A41.9 Sepsis, unspecified organism (principal); G93.41 Metabolic encephalopathy; I82.411 Acute embolism and thrombosis of right femoral vein; N17.9 Acute kidney failure, unspecified; N13.8 Other obstructive and reflux uropathy; E87.2 Acidosis; I82.431 Acute embolism and thrombosis of right popliteal vein; E87.0 Hyperosmolality and hypernatremia; E44.0 Moderate protein-calorie malnutrition; B17.9 Acute viral hepatitis, unspecified; N30.00 Acute cystitis without hematuria; R65.20 Severe sepsis without septic shock; I12.9 Hypertensive chronic kidney disease with stage 1 through stage 4 chronic kidney disease, or unspecified chronic kidney disease; I48.91 Unspecified atrial fibrillation; B02.9 Zoster without complications; E87.6 Hypokalemia; E11.22 Type 2 diabetes mellitus with diabetic chronic kidney disease; F03.90 Unspecified dementia, unspecified severity, without behavioral disturbance, psychotic disturbance, mood disturbance, and anxiety; R77.8 Other specified abnormalities of plasma proteins; R06.03 Acute respiratory distress; R33.9 Retention of urine, unspecified; R74.01 Elevation of levels of liver transaminase levels; R31.0 Gross hematuria; R94.5 Abnormal results of liver function studies; R79.89 Other specified abnormal findings of blood chemistry; N13.9 Obstructive and reflux uropathy, unspecified; D63.8 Anemia in other chronic diseases classified elsewhere; R00.1 Bradycardia, unspecified; B95.2 Enterococcus as the cause of diseases classified elsewhere; N18.30 Chronic kidney disease, stage 3 unspecified; Z86.718 Personal history of other venous thrombosis and embolism; Z74.01 Bed confinement status; Z68.27 Body mass index [BMI] 27.0-27.9, adult; Z66 Do not resuscitate; Z79.899 Other long term (current) drug therapy; Z85.46 Personal history of malignant neoplasm of prostate; Z79.01 Long term (current) use of anticoagulants; Z20.828 Contact with and (suspected) exposure to other viral communicable diseases
CPT/HCPCS: 36415; 51702; 70450; 71045; 72125; 76700; 80048; 80053; 80076; 81003; 82140; 82805; 82947; 83605; 83690; 83735; 83880; 84100; 84132; 84439; 84484; 85025; 85610; 87040; 87077; 87086; 87088; 87186; 93005; 93306; 93970; 96361; 96365; 96366; 96375; 99285; J0696; J1940; J2543; J3480; J7030; J7040; J7050; U0003